=== PATIENT | female | born 1940 | race Caucasian/White ===

== ENCOUNTER 2016-10-24 01:04 | Emergency (ER) | payer MEDICARE ==
[2016-10-24 01:13] VITALS: O2SAT 98
[2016-10-24] MEDS ORDERED: TORAdol 30 mg Injection IV ONE (01:13)
[2016-10-24] MEDS ORDERED: Zofran 4 MG/2 ML VIAL IV ONE (01:13)
[2016-10-24] MEDS ORDERED: MORPHINE SULFATE 10 MG/ML IV ONE (01:13)
--- NOTE | 2016-10-24 01:17 | ERPHSYRPT ---
- History of Present Illness Time Seen by Provider: 10/24/16 01:11 Source: patient, EMS Exam Limitations: no limitations Patient Subjective Stated Complaint: "i tripped and fell again." per ems, deformity to right wrist Triage Nursing Assessment: aox3, breathing easy unlabored,skin pink warm dry, < 3 carp refill noted to right fingers, deformity noted to right lateral wrist Physician History: The patient is a 76-year-old female brought in from home by ambulance where she tripped and fell, hurting her right wrist. She is right-handed. The accident happened approximately one hour ago. She has severe wrist pain at this current time. She denies numbness or tingling in the extremities. The pain is severe. The past medical history significant for hypertension, high cholesterol, and DM. Occurred: just prior to arrival Method of Injury: fell Quality: constant Severity of Pain-Max: severe Severity of Pain-Current: severe Extremities Pain Location: wrist: right Modifying Factors: Improves With: nothing Associated Symptoms: none Allergies/Adverse Reactions: codeine Allergy (Verified 04/27/16 23:39) Sulfa (Sulfonamide Antibiotics) Allergy (Verified 04/27/16 23:39) Home Medications: Aspirin 81 mg PO DAILY 03/05/15 [History] Citalopram Hydrobromide 20 mg* [ceLEXa 20 MG] 20 mg PO HS 03/05/15 [History] Gabapentin 300 mg PO TID 03/05/15 [History] Glipizide 5 mg [Glucotrol 5 MG] 5 mg PO DAILY 03/05/15 [History] Losartan/Hydrochlorothiazide [Losartan-Hctz 100-25 mg Tab] 1 each PO DAILY 03/05 [History] Omeprazole 20 MG [Prilosec 20 mg] 20 mg PO DAILY 03/05/15 [History] Simvastatin 40 mg [Zocor 40 mg] 40 mg PO HS 03/05/15 [History] Albuterol Sulfate [Ventolin Hfa] 18 gm IH Q4-6HPRN PRN 10/24/16 [History] Hx Tetanus, Diphtheria Vaccination/Date Given: No Hx Influenza Vaccination/Date Given: No Hx Pneumococcal Vaccination/Date Given: No - Review of Systems Constitutional: No Fever, No Chills Eyes: No Symptoms Ears, Nose, & Throat: No Symptoms Respiratory: No Cough, No Dyspnea Cardiac: No Chest Pain, No Edema, No Syncope Abdominal/Gastrointestinal: Nausea Genitourinary Symptoms: No Dysuria Musculoskeletal: Deformity, Fall, Joint Pain Skin: No Rash Neurological: No Dizziness, No Focal Weakness, No Sensory Changes Psychological: No Symptoms Endocrine: No Symptoms Hematologic/Lymphatic: No Symptoms Immunological/Allergic: No Symptoms All Other Systems: Reviewed and Negative - Past Medical History Pertinent Past Medical History: Yes Neurological History: No Pertinent History ENT History: Cataracts Cardiac History: High Cholesterol, Hypertension Respiratory History: Asthma Endocrine Medical History: Diabetes Type II Musculoskeletal History: Arthritis GI Medical History: GERD History: No Pertinent History Psycho-Social History: Anxiety Female Reproductive Disorders: No Pertinent History - Past Surgical History Past Surgical History: Yes Neuro Surgical History: No Pertinent History Cardiac: No Pertinent History Respiratory: No Pertinent History Gastrointestinal: No Pertinent History Genitourinary: No Pertinent History Musculoskeletal: Orthopedic Surgery Female Surgical History: No Pertinent History Other Surgical History: R ARM, BACK, - Social History Smoking Status: Former smoker Exposure to second hand smoke: No Drug Use: none Patient Lives Alone: No - Nursing Vital Signs Nursing Vital Signs: Initial Vital Signs Temperature 98.3 F Temperature Source Oral Pulse Rate 95 Respiratory Rate 18 Blood Pressure [Left Arm] 124/85 Pain Intensity 10 - Physical Exam General Appearance: moderate distress Eyes, Ears, Nose, Throat Exam: moist mucous membranes Neck Exam: non-tender, supple Cardiovascular/Respiratory Exam: chest non-tender, normal breath sounds, regular rate/rhythm, no respiratory distress Abdominal Exam: non-tender, No guarding Back Exam: normal inspection, No vertebral tenderness Shoulder Exam: normal inspection Elbow/Forearm Exam: normal inspection Wrist Exam: deformity (right wrist), limited ROM, pain Hand Exam: normal inspection Neuro/Tendon Exam: normal sensation, normal motor functions Mental Status Exam: alert, oriented x 3, cooperative Skin Exam: normal color, warm, dry SpO2 Interpretation: normal - Radiology Exams Wrist X-ray Interpretation: Interpreted by me, Displaced Fracture (compression fx with lateral displacement of distal radius. Fx of ulnar styloid.) Ordered Tests: Active Orders 24 hr Category Date Time Status Cold Application STAT Care 10/24/16 01:13 Active IV Insertion STAT Care 10/24/16 01:13 Active WRIST (MIN 3 VIEWS) Stat Exams 10/24/16 01:14 Ordered Medication Summary Discontinued Medications Generic Name Dose Route Start Last Admin Trade Name Layla PRN Reason Stop Dose Admin Ketorolac Tromethamine 15 mg 10/24/16 01:13 10/24/16 01:24 Toradol 30 Mg Injection IV 10/24/16 01:14 15 mg STAT ONE Administration Ketorolac Tromethamine Confirm 10/24/16 01:20 Toradol 30 Mg Injection Administered 10/24/16 01:21 Dose 30 mg .ROUTE .STK-MED ONE Morphine Sulfate 8 mg 10/24/16 01:13 10/24/16 01:24 Morphine Sulfate 10 Mg/Ml IV 10/24/16 01:14 8 mg STAT ONE Administration Morphine Sulfate Confirm 10/24/16 01:20 Morphine Sulfate 10 Mg/Ml Administered 10/24/16 01:21 Dose 10 mg .ROUTE .STK-MED ONE Ondansetron HCl 4 mg 10/24/16 01:13 10/24/16 01:25 Zofran 4 Mg/2 Ml Vial IV 10/24/16 01:14 4 mg STAT ONE Administration Ondansetron HCl Confirm 10/24/16 01:20 Zofran 4 Mg/2 Ml Vial Administered 10/24/16 01:21 Dose 4 mg .ROUTE .STK-MED ONE - Progress Progress: improved Counseled pt/family regarding: rad results - Departure Time of Disposition: 02:02 Departure Disposition: Transfer (Transfer to [facility] per Dr Geronimo and Dr Shirley) Clinical Impression: Closed fracture distal radius and ulna Condition: Stable Critical Care Time: No
[2016-10-24] MEDS ORDERED: MORPHINE SULFATE 10 MG/ML ONE (01:20)
[2016-10-24] MEDS ORDERED: TORAdol 30 mg Injection ONE (01:20)
[2016-10-24] MEDS ORDERED: Zofran 4 MG/2 ML VIAL ONE (01:20)
[2016-10-24 02:18] VITALS: PULSE 79
[2016-10-24] MEDS ORDERED: MORPHINE SULFATE 4 MG INJ IV ONE (02:22)
[2016-10-24] MEDS ORDERED: MORPHINE SULFATE 4 MG INJ ONE (02:25)
[2016-10-24 03:09] VITALS: BP 119/88
--- NOTE | 2016-10-24 08:37 | XRAY ---
Indication: Pain following fall. Comparison: None 3 views of the right wrist demonstrates displaced/angulated oblique fracture involving the distal radius and displaced ulnar styloid fracture with soft tissue swelling. Also age-related osteopenia and mild degenerative changes of the first metacarpal multangular articulation.
== END 2016-10-24 03:30 | disposition short-term general hospital (02) ==
LOC: ED 01:04
DX: S52.501A Unspecified fracture of the lower end of right radius, initial encounter for closed fracture (principal); S52.611A Displaced fracture of right ulna styloid process, initial encounter for closed fracture; W01.0XXA Fall on same level from slipping, tripping and stumbling without subsequent striking against object, initial encounter; I10 Essential (primary) hypertension; E78.00 Pure hypercholesterolemia, unspecified; E11.9 Type 2 diabetes mellitus without complications; Z79.84 Long term (current) use of oral hypoglycemic drugs; Z79.899 Other long term (current) drug therapy
CPT/HCPCS: 36000; 73110; 96374; 96375; 96376; 99284; 99285; J1885; J2270; J2405

== ENCOUNTER 2017-09-26 07:33 | Inpatient (IN) | payer MEDICARE ==
[2017-09-26] MEDS ORDERED: SUBLIMAZE 100 MCG/2 ML IV ONE ×2 (07:34→08:19)
--- NOTE | 2017-09-26 07:40 | ERPHSYRPT ---
- History of Present Illness Time Seen by Provider: 09/26/17 07:34 Source: patient, EMS (gave IV and zofran) Physician History: CC: right flank pain Hx: 77 y/o patient of Dr Ellsworth. She lives at home with family support. Daughter in law apparently called 911 and told them pt needs to be placed in a home. She has 3 days of right flank pain. Denies fall or injury. Pain worse with movement. Severe. Normal urination but wears depends. No fever or chills. Was able to ambulate to cot with her walker. No N/V. She is diabetic. Denies blood thinners. She had nausea. BP 90 in ambulance. Timing/Duration: day(s) (3) Severity: moderate Allergies/Adverse Reactions: codeine Allergy (Verified 09/26/17 07:44) Sulfa (Sulfonamide Antibiotics) Allergy (Verified 09/26/17 07:44) Home Medications: Aspirin 81 mg PO DAILY 03/05/15 [History] Citalopram Hydrobromide 20 mg* [ceLEXa 20 MG] 20 mg PO HS 03/05/15 [History] Gabapentin 300 mg PO TID 03/05/15 [History] Glipizide 5 mg [Glucotrol 5 MG] 5 mg PO DAILY 03/05/15 [History] Losartan/Hydrochlorothiazide [Losartan-Hctz 100-25 mg Tab] 1 each PO DAILY 03/05 [History] Omeprazole 20 MG [Prilosec 20 mg] 20 mg PO DAILY 03/05/15 [History] Simvastatin 40 mg [Zocor 40 mg] 40 mg PO HS 03/05/15 [History] Albuterol Sulfate [Ventolin Hfa] 18 gm IH Q4-6HPRN PRN 10/24/16 [History] Hx Tetanus, Diphtheria Vaccination/Date Given: No Hx Influenza Vaccination/Date Given: No Hx Pneumococcal Vaccination/Date Given: No - Review of Systems Constitutional: Fatigue, Malaise, Weakness, No Fever, No Chills Eyes: No Symptoms Ears, Nose, & Throat: No Symptoms Respiratory: No Cough Cardiac: No Chest Pain Abdominal/Gastrointestinal: Abdominal Pain (and right flank pain), Nausea, No Vomiting, No Diarrhea Genitourinary Symptoms: No Dysuria Musculoskeletal: Back Pain (right flank pain), No Fall Skin: No Rash Neurological: No Focal Weakness, No Headache, No Parasthesia All Other Systems: Reviewed and Negative - Past Medical History Pertinent Past Medical History: Yes Neurological History: No Pertinent History ENT History: Cataracts Cardiac History: Other Respiratory History: Asthma Endocrine Medical History: Diabetes Type II Musculoskeletal History: Arthritis GI Medical History: GERD History: No Pertinent History Psycho-Social History: Anxiety Female Reproductive Disorders: No Pertinent History - Past Surgical History Past Surgical History: Yes Neuro Surgical History: No Pertinent History Cardiac: No Pertinent History Respiratory: No Pertinent History Gastrointestinal: No Pertinent History Genitourinary: No Pertinent History Musculoskeletal: Orthopedic Surgery Female Surgical History: No Pertinent History Other Surgical History: R ARM, BACK, - Social History Smoking Status: Former smoker Exposure to second hand smoke: No Drug Use: none Patient Lives Alone: No (lives at home with son) - Nursing Vital Signs Nursing Vital Signs: Initial Vital Signs Temperature 98.3 F 09/26/17 07:34 Pulse Rate 89 09/26/17 07:34 Respiratory Rate 20 09/26/17 07:34 Blood Pressure 155/61 09/26/17 07:34 O2 Sat by Pulse Oximetry 100 09/26/17 07:34 Pain Scale Pain Intensity 6 - Physical Exam General Appearance: alert, obese, other (agitated on arrival) Eye Exam: PERRL/EOMI Ears, Nose, Throat Exam: normal ENT inspection, moist mucous membranes Neck Exam: normal inspection, non-tender, supple Respiratory Exam: normal breath sounds, other (tender right posterior lower rib , no crepitus, breath sounds intact) Cardiovascular Exam: regular rate/rhythm Gastrointestinal/Abdomen Exam: soft, No tenderness, No distention, No mass, No guarding Extremity Exam: normal range of motion, pedal edema (trace) Neurologic Exam: alert, oriented x 3, No motor deficits Skin Exam: warm, dry, other (small round bruises on legs) - Course Nursing assessment & vital signs reviewed: Yes EKG Interpreted by Me: RATE (78), Sinus Rhythm, NORMAL AXIS, NORMAL INTERVALS ( QTc 424), Non-specific ST Changes - Radiology Exams cxr X-ray Interpretation: Teleradiologist Report, Negative (lungs clear) - CT Exams abd/pelvis CT Interpretation: Discussed w/radiologist (nondisplaced right rib fx, right renal cyst vs calcified mass) Ordered Tests: Active Orders 24 hr Category Date Time Status Cath for Specimen-Straight STAT Care 09/26/17 07:35 Active EKG-ER Only STAT Care 09/26/17 07:34 Active IV Insertion STAT Care 09/26/17 07:34 Active NPO (ED) STAT Care 09/26/17 07:34 Active ABDOMEN AND PELVIS W/0 CONTRAS [CT] Stat Exams 09/26/17 07:35 Completed CHEST 1 VIEW (PORTABLE) Stat Exams 09/26/17 07:34 Completed RECONSTRUCTION [CT] Stat Exams 09/26/17 08:01 Ordered BLOOD CULTURE Stat Lab 09/26/17 07:40 Received CBC W DIFF Stat Lab 09/26/17 07:34 Completed CMP Stat Lab 09/26/17 07:34 Completed CULTURE,URINE Stat Lab 09/26/17 07:34 Received LIPASE Stat Lab 09/26/17 07:34 Completed Lactic Acid Stat Lab 09/26/17 08:52 Received UA W/ MICROSCOPIC Stat Lab 09/26/17 07:34 Completed Medication Summary Generic Name Dose Route Start Last Admin Trade Name Freq PRN Reason Stop Dose Admin Sodium Chloride 1,000 mls @ 50 mls/hr 09/26/17 07:45 09/26/17 07:47 Sodium Chloride 0.9% 1000 Ml IV 10/26/17 07:44 50 mls/hr .Q20H SHAUN Administration Ceftriaxone Sodium/Dextrose 1 g in 50 mls @ 100 mls/hr 09/26/17 08:41 Rocephin 1 Gm-D5w 50 Ml Bag IV 09/26/17 09:10 STAT STA Discontinued Medications Generic Name Dose Route Start Last Admin Trade Name Freq PRN Reason Stop Dose Admin Fentanyl Citrate 50 mcg 09/26/17 07:34 09/26/17 07:47 Sublimaze 100 Mcg/2 Ml IV 09/26/17 07:35 50 mcg STAT ONE Administration Fentanyl Citrate Confirm 09/26/17 07:44 Sublimaze 100 Mcg/2 Ml Administered 09/26/17 07:45 Dose 100 mcg .ROUTE .STK-MED ONE Fentanyl Citrate 50 mcg 09/26/17 08:19 09/26/17 08:23 Sublimaze 100 Mcg/2 Ml IV 09/26/17 08:20 50 mcg STAT ONE Administration Fentanyl Citrate Confirm 09/26/17 08:22 Sublimaze 100 Mcg/2 Ml Administered 09/26/17 08:23 Dose 100 mcg .ROUTE .STK-MED ONE Lab/Rad Data: Laboratory Result Diagrams 09/26/17 07:34 09/26/17 07:34 Laboratory Results 09/26/17 09/26/17 09/26/17 Range/Units 07:34 07:34 07:34 WBC 5.4 (4.0-10.5) K/mm3 RBC 4.16 (4.1-5.4) M/mm3 Hgb 13.8 (12.0-16.0) gm/dl Hct 40.1 (35-47) % MCV 96.4 (78-100) fl MCH 33.2 H (26-32) pg MCHC 34.4 (32-36) g/dl RDW 12.5 (11.5-14.0) % Plt Count 217 (150-450) K/mm3 MPV 11.1 H (6-9.5) fl Gran % 60.7 (36.0-66.0) % Lymphocytes % 25.0 (24.0-44.0) % Monocytes % 9.8 (0.0-12.0) % Eosinophils % 4.1 (0.00-5.0) % Basophils % 0.4 (0.0-0.4) % Basophils # 0.02 (0-0.4) Sodium 140 (136-145) mEq/L Potassium 4.2 (3.5-5.1) mEq/L Chloride 102 (98-107) mEq/L Carbon Dioxide 24.8 (21-32) mEq/L Anion Gap 17.2 H (5-15) MEQ/L BUN 24 H (9-20) mg/dL Creatinine 1.11 (0.55-1.30) mg/dl Estimated GFR 51 ML/MIN Glucose 172 H (70-110) MG/DL Calcium 9.6 (8.5-10.1) mg/dL Total Bilirubin 0.70 (0.2-1.0) mg/dL AST 15 (15-37) U/L ALT 20 (12-78) U/L Alkaline Phosphatase 58 (46-116) U/L Serum Total Protein 7.5 (6.4-8.2) gm/dL Albumin 4.1 (3.4-5.0) g/dL Lipase 135 (73-393) U/L Ur Collection Type CATH Urine Color YELLOW (YELLOW) Urine Appearance HAZY (CLEAR) Urine pH 5.0 (5-6) Ur Specific [place] 1.015 (1.005-1.025) Urine Protein TRACE (Negative) Urine Ketones NEGATIVE (NEGATIVE) Urine Blood 250 (0-5) Charles/ul Urine Nitrite POSITIVE (NEGATIVE) Urine Bilirubin NEGATIVE (NEGATIVE) Urine Urobilinogen NORMAL (0-1) mg/dL Ur Leukocyte Esterase 1+ (NEGATIVE) Urine Microscopic RBC 5-10 (0-2) /HPF Urine Microscopic WBC 2-5 (0-5) /HPF Ur Epithelial Cells FEW (FEW) /HPF Urine Bacteria MANY (NEGATIVE) /HPF Urine Culture Reflexed YES (NO) Urine Glucose NEGATIVE (NEGATIVE) mg/dL Specimen Received 09/26/17 0734 - Progress Progress Note: 09/26/17 08:55 She is enrolled in OP PT. She apparently has limited mobililty at home. This pain has been uncontrolled and limited her. She has UTI. Called Dr Kemp for Stephan and will admit to IP, consult PT, pain control, and abtx. Discussed with : Justo Will see patient in: hospital (full admit) Counseled pt/family regarding: lab results, diagnosis, need for follow-up, rad results - Departure Time of Disposition: 08:56 Departure Disposition: In-patient Admission Clinical Impression: Diabetes, UTI (urinary tract infection), Right rib fracture Condition: Fair Critical Care Time: No Referrals: JAVED ELLSWORTH MD [Primary Care Provider] -
[2017-09-26] MEDS ORDERED: SUBLIMAZE 100 MCG/2 ML ONE ×2 (07:44→08:22)
[2017-09-26] MEDS ORDERED: Sodium Chloride 0.9% 1000 ML 1,000 ML ONE (07:44)
[2017-09-26] MEDS ORDERED: Sodium Chloride 0.9% 1000 ML 1,000 ML IV SCH (07:45)
[2017-09-26 08:00] LABS: BASOPHIL % 0.4 % (0.0-0.4); Basophil (Absolute #) 0.02 (0-0.4); Eosinophil % 4.1 % (0.00-5.0); Eosinophil (Absolute #) 0.22 (0-0.5); Granulocyte Absolute (ANC) 3.28 (1.4-6.9); Granulocytes % 60.7 % (36.0-66.0); Hematocrit 40.1 % (35-47); Hemoglobin 13.8 gm/dl (12.0-16.0); Lymphocyte (Absolute #) 1.35 (1.0-4.6); Mean Cell Volume 96.4 fl (78-100); Mean Corpuscular Hemoglobin 33.2 pg (26-32); Mean Corpuscular Hgb Concent. 34.4 g/dl (32-36); Mean Platelet Volume 11.1 fl (6-9.5); Monocyte (Absolute #) 0.53 (0.0-1.3); Monocytes % 9.8 % (0.0-12.0); Platelet Count 217 K/mm3 (150-450); Red Blood Count 4.16 M/mm3 (4.1-5.4); Red Cell Distribution Width 12.5 % (11.5-14.0); White Blood Count 5.4 K/mm3 (4.0-10.5)
[2017-09-26 08:05] LABS: Appearance HAZY (CLEAR); Bilirubin NEGATIVE (NEGATIVE); Blood 250 Ery/ul (0-5); Glucose NEGATIVE (NEGATIVE); Ketones NEGATIVE (NEGATIVE); Leukocyte Esterase 1+ (NEGATIVE); Nitrite POSITIVE (NEGATIVE); Protein,Urine Dip TRACE (Negative); Specific Gravity 1.015 (1.005-1.025); Urobilinogen NORMAL mg/dL (0-1)
[2017-09-26 08:08] LABS: Bacteria MANY /HPF (NEGATIVE); Epithelial Cells FEW /HPF (FEW)
[2017-09-26 08:19] LABS: ALBUMIN 4.1 g/dL (3.4-5.0); ANION GAP 17.2 MEQ/L (5-15); BILIRUBIN,TOTAL 0.7 mg/dL (0.2-1.0); Calcium 9.6 mg/dL (8.5-10.1); Carbon Dioxide 24.8 mEq/L (21-32); Creatinine 1 1.11 mg/dl (0.55-1.30); Potassium 4.2 mEq/L (3.5-5.1); Total Protein 7.5 gm/dL (6.4-8.2)
[2017-09-26] MEDS ORDERED: ROCEPHIN 1 Gm-D5w 50 ml Bag** 1 G/50 ML IVPB IV STA (08:41)
--- NOTE | 2017-09-26 08:41 | XRAY ---
Indication: Chest pain. Comparison: April 27, 2016. Portable chest better inflated today and clear. Heart and mediastinal structures within normal limits for AP portable technique. Bony thorax intact again with mild osteopenia, degenerative changes, and right shoulder surgery. Impression: Nonacute chest with chronic features.
--- NOTE | 2017-09-26 08:44 | XRAY ---
Indication: Right flank pain. Multiple contiguous axial images obtained through the abdomen and pelvis without contrast using renal stone protocol. Comparison: None Lung bases essentially clear. Heart is not enlarged. Small hiatal hernia. No renal calculus or evidence for obstructive uropathy in either system. 3 cm right mid renal cortical cyst. 1 cm hyperdense lesion in the left mid renal cortex either complex/hemorrhagic cyst versus calcified mass. No perinephric stranding or perinephric fluid. Mild fatty liver. Remaining liver, gallbladder, pancreas, spleen, adrenal glands, kidneys, ureters, bladder, and uterus unremarkable for noncontrast exam. Noncontrasted stomach and bowel loops appear nonobstructed. Normal appendix. No free fluid/air. Heavy aortoiliac calcifications without AAA. Osseous structures intact with degenerative changes throughout the spine. Old right inferior. Bone fracture. Small fatty right inguinal hernia. No ventral hernia. Impression: 1. Negative renal calculus or evidence for obstructive uropathy. 2. Right renal cysts. Left renal hyperdense lesion either complex/hemorrhagic cyst cyst versus calcified mass. Further evaluation with contrasted exam may yield further information. 3. Incidental small hiatal hernia, fatty liver, and a small fatty right inguinal hernia. CT DI 23.68
[2017-09-26] MEDS ORDERED: ROCEPHIN 1 Gm-D5w 50 ml Bag** 1 G/50 ML IVPB IV ONE (08:54)
[2017-09-26 09:03] LABS: Lactic Acid 3.4 (0.4-2.0)
[2017-09-26] MEDS ORDERED: TYLENOL 325 MG PO PRN (09:27)
[2017-09-26] MEDS ORDERED: NovoLOG Insulin SQ PRN (09:27)
[2017-09-26] MEDS ORDERED: Zofran 4 MG/2 ML VIAL IV PRN (09:27)
[2017-09-26] MEDS: DILAUDID 2 MG INJECTION IV PRN ×2 (09:53→14:34)
[2017-09-26] MEDS: NEURONTIN 300 MG PO SCH ×2 (14:34→21:02)
[2017-09-26] MEDS: Protonix 40MG Tablet PO SCH (14:39)
[2017-09-26] MEDS: ECOTRIN 81 MG PO SCH (14:39)
[2017-09-26] MEDS: hydroDIURIL 25 MG PO SCH (14:42)
[2017-09-26] MEDS: Cozaar 50 MG PO SCH (14:42)
[2017-09-26] MEDS ORDERED: PROVENTIL COMMON CANISTER IH PRN (15:00)
--- NOTE | 2017-09-26 18:24 | PCM.HP ---
History of Present Illness - Chief Complaint Chief Complaint: UTI, RIGHT RIB FRACTURE, DM History of Present Illness: is a 77 year old female pt of Dr. Rothman who was brought to ER by family earlier today. Per Dr. Lynn the daughter in law dropped pt off then left for work, stating she couldn't be back to get her until the end of the day. Pt has been c/o R flank pain x 3d or so. Denies fever. She was found to have a UTI and possibly have a cracked rib (per Dr. Lynn; Dr. Menard did not read in his films). The pain appears worse with movement. Denies vomiting or diarrhea. States she has been eating well. Pt's son and daughter in law live with her. She states they take care of her. Per RN, Adult Protective Services has been called to evaluate the situation at one point. Per RN, the family talks poorly about the patient, calling her derogatory names. Pt is a poor historian and appears to have some dementia as she is not oriented to time and asks for Dr. Wooten at one point during our visit. - Review of Systems All Other Systems: Unable due to dementia Medications & Allergies Home Medications: Home Medication List Aspirin 81 mg PO DAILY 03/05/15 [History Confirmed 09/26/17] Citalopram Hydrobromide 20 mg* [ceLEXa 20 MG] 20 mg PO HS 03/05/15 [History Confirmed 09/26/17] Gabapentin 300 mg PO TID 03/05/15 [History Confirmed 09/26/17] Glipizide 5 mg [Glucotrol 5 MG] 5 mg PO DAILY 03/05/15 [History Confirmed 09/26/17] Losartan/Hydrochlorothiazide [Losartan-Hctz 100-25 mg Tab] 1 each PO DAILY 03/05 [History Confirmed 09/26/17] Omeprazole 20 MG [Prilosec 20 mg] 20 mg PO DAILY 03/05/15 [History Confirmed ] Simvastatin 40 mg [Zocor 40 mg] 40 mg PO HS 03/05/15 [History Confirmed 09/26/17 ] Albuterol Sulfate [Ventolin Hfa] 18 gm IH Q4-6HPRN PRN 10/24/16 [History Confirmed 09/26/17] Allergies/Adverse Reactions: Allergies Allergy/AdvReac Type Severity Reaction Status Date / Time codeine Allergy Verified 09/26/17 07:44 Sulfa (Sulfonamide Allergy Verified 09/26/17 07:44 Antibiotics) - Past Medical History Past Medical History: Yes Neurological History: No Pertinent History ENT History: Cataracts Cardiac History: Other Respiratory History: Asthma Endocrine Medical History: Diabetes Type II Musculoskelatal History: Arthritis GI Medical History: GERD History: No Pertinent History Pyscho-Social History: Anxiety Reproductive Disorders: No Pertinent History - Past Surgical History Past Surgical History: Yes Neuro Surgical History: No Pertinent History Cardiac History: No Pertinent History Respiratory Surgery: No Pertinent History GI Surgical History: No Pertinent History Genitourinary Surgical Hx: No Pertinent History Musculskeletal Surgical Hx: Orthopedic Surgery Female Surgical History: No Pertinent History Other Surgical History: R ARM, BACK, R hand surgery - Social History Smoking Status: Former smoker Exposure to second hand smoke: Yes Alcohol: None Drug Use: none - Physical Exam Vital Signs: Vital Signs - 24 hr Temp Pulse Resp BP Pulse Ox 09/26/17 17:00 99.0 F 82 18 107/55 94 L 09/26/17 13:27 98.4 F 67 18 130/60 99 09/26/17 10:18 98.2 F 67 20 134/62 99 09/26/17 09:38 98.2 F 67 134/62 09/26/17 09:27 98.2 F 67 18 134/62 99 09/26/17 08:51 81 20 131/73 100 09/26/17 08:35 76 18 134/65 100 09/26/17 08:20 89 20 149/60 100 09/26/17 07:34 98.3 F 89 20 155/61 100 General Appearance: moderate distress (at times (with movement)), alert Neurologic Exam: cooperative (but does not always answer questions), disoriented (to time) Eye Exam: eyes nml inspection Neck Exam: normal inspection, non-tender, No lymphadenopathy Respiratory Exam: normal breath sounds, lungs clear, No crackles/rales, No rhonchi, No wheezing Cardiovascular Exam: regular rate/rhythm, normal heart sounds, No murmur Gastrointestinal/Abdomen Exam: soft, tenderness (RUQ, mild), No distention, No guarding, No rebound Back Exam: normal inspection, other (no rash. ttp at R costophrenic angle) Extremity Exam: swelling (1+ pretibial edema bilat) Assessment/Plan (1) Flank pain Current Visit: Yes Status: Acute Assessment & Plan: could be related to UTI although no signs of pyelonephritis on CT abd/pelvis. Could be musculoskeletal - added cyclobenzaprine and try percocet po for pain. Code(s): R10.9 - UNSPECIFIED ABDOMINAL PAIN (2) UTI (urinary tract infection) Current Visit: Yes Status: Acute Assessment & Plan: On IV rocephin. urine culture pending. Code(s): N39.0 - URINARY TRACT INFECTION, SITE NOT SPECIFIED (3) Diabetes Current Visit: Yes Status: Acute Qualifiers: Diabetes mellitus type: type 2 Assessment & Plan: accuchecks Code(s): E11.9 - TYPE 2 DIABETES MELLITUS WITHOUT COMPLICATIONS (4) Fall at home Current Visit: Yes Status: Acute Qualifiers: Encounter type: initial encounter Qualified Code(s): W19.XXXA - Unspecified fall, initial encounter; Y92.009 - Unspecified place in unspecified non-institutional (private) residence as the place of occurrence of the external cause; Y92.009 - Unspecified place in unspecified non-institutional ( private) residence as the place of occurrence of the external cause Code(s): W19.XXXA - UNSPECIFIED FALL, INITIAL ENCOUNTER; Y92.099 - UNSP PLACE IN OTH NON-INSTITUTIONAL RESIDENCE PLACE (5) Right rib fracture Current Visit: Yes Status: Acute Qualifiers: Encounter type: initial encounter Rib fracture type: single rib Fracture type: closed Qualified Code(s): S22.31XA - Fracture of one rib, right side, initial encounter for closed fracture Assessment & Plan: Unsure if fx is present Code(s): S22.31XA - FRACTURE OF ONE RIB, RIGHT SIDE, INIT FOR CLOS FX (6) Coronary artery disease Current Visit: No Status: Chronic Code(s): I25.10 - ATHSCL HEART DISEASE OF [place] CORONARY ARTERY W/O ANG PCTRS (7) Social issues Current Visit: Yes Status: Acute Assessment & Plan: Jamaal Hernandesd working with family; they desire placement. Certainly there are emotional issues between family and pt.
[2017-09-26] MEDS: OXYCODONE-ACETAMINOPHEN 10-325 PO PRN (19:28)
[2017-09-26] MEDS: ZOCOR 20MG PO SCH (21:01)
[2017-09-26] MEDS: ceLEXa 20 MG PO SCH (21:02)
[2017-09-27] MEDS: Sodium Chloride 0.9% 1000 ML 1,000 ML IV SCH (04:25)
[2017-09-27] MEDS: DILAUDID 2 MG INJECTION IV PRN (04:54)
[2017-09-27] MEDS: OXYCODONE-ACETAMINOPHEN 10-325 PO PRN ×2 (08:14→15:04)
--- NOTE | 2017-09-27 08:41 | PCM.NOTE ---
Date and Time: 09/27/17838 Subjective Assessment: patient still c/o significant right flank pain. she has no new complaints, has been up out of bed to use the restroom. Objective Exam General Appearance: no apparent distress, alert, obese Skin Exam: normal color, warm, dry Respiratory Exam: normal breath sounds, lungs clear, No respiratory distress Cardiovascular Exam: regular rate/rhythm, normal heart sounds Gastrointestinal/Abdomen Exam: soft, No tenderness, No mass Extremity Exam: normal inspection, normal range of motion OBJECTIVE DATA Vital Signs: Vital Signs - 24 hr Temp Pulse Resp BP Pulse Ox 09/27/17 07:28 73 16 94 L 09/27/17 07:23 97.6 F 78 18 96/52 96 09/27/17 04:59 98.0 F 72 20 103/52 94 L 09/27/17 00:30 97.8 F 83 16 97/51 94 L 09/26/17 21:10 88 18 93 L 09/26/17 21:00 98.8 F 88 18 97/55 93 L 09/26/17 17:00 99.0 F 82 18 107/55 94 L 09/26/17 13:27 98.4 F 67 18 130/60 99 09/26/17 10:18 98.2 F 67 20 134/62 99 09/26/17 09:38 98.2 F 67 134/62 09/26/17 09:27 98.2 F 67 18 134/62 99 09/26/17 08:51 81 20 131/73 100 Pain Assessment - Last Documented Pain Intensity 9 Pain Scale Used 0-10 Pain Scale Intake and Output: Intake & Output 09/24/17 09/25/17 09/26/17 09/27/17 11:59 11:59 11:59 11:59 Intake Total 1560 Balance 1560 Weight 97.7 kg Lab Results: Accuchecks Date 09/27/17 Date 09/26/17 Date 09/26/17 Date 09/26/17 Time 07:00 Time 21:00 Time 16:30 Time 11:30 Accucheck Value: 121 Accucheck Value: 145 Accucheck Value: 111 Accucheck Value: 141 Lab Results-Last 24 Hours 09/26/17 Range/Units 17:11 Lactic Acid 1.4 (0.4-2.0) Multi-Disciplinary Progress Notes: Multi-Disciplinary Progress Notes 09/26/17 14:29 Physical Therapy Note by Agatha Banda PATIENT UNABLE TO TOLERATE ACTIVITY BEYOND ROUTINE CARE TODAY DUE TO GRABBING LOWER RIGHT QUADRANT PAIN. PAIN ONSETS WITH MINIMAL MOVEMENT. APPLIED ICE TO ASSESS BENEFIT. CONTINUES PAIN MEDS. UNCLEAR IF PAIN IS ASSOCIATED WITH RIGHT 10TH RIB FX. PATIENT REPORTS NO RECENT FALLS. ABD CT OTHERWISE NEGATIVE FOR ANY OTHER ACUTE PROBLEMS. PATIENT DOES HAVE A UTI; RIGHT FLANK PAIN WAS REPORTED IN E.R. Initialized on 09/26/17 14:29 - END OF NOTE Assessment/Plan (1) UTI (urinary tract infection) Current Visit: Yes Status: Acute Assessment & Plan: on rocephin, c and s pending. failed outpatient therapy and needs continued IV antibiotics Code(s): N39.0 - URINARY TRACT INFECTION, SITE NOT SPECIFIED (2) Fall at home Current Visit: Yes Status: Acute Qualifiers: Encounter type: initial encounter Qualified Code(s): W19.XXXA - Unspecified fall, initial encounter; Y92.009 - Unspecified place in unspecified non-institutional (private) residence as the place of occurrence of the external cause; Y92.009 - Unspecified place in unspecified non-institutional ( private) residence as the place of occurrence of the external cause Assessment & Plan: discussed patient will need rehab stay Code(s): W19.XXXA - UNSPECIFIED FALL, INITIAL ENCOUNTER; Y92.099 - UNSP PLACE IN OTH NON-INSTITUTIONAL RESIDENCE PLACE (3) Flank pain Current Visit: Yes Status: Acute Code(s): R10.9 - UNSPECIFIED ABDOMINAL PAIN (4) Diabetes Current Visit: Yes Status: Acute Qualifiers: Diabetes mellitus type: type 2 Code(s): E11.9 - TYPE 2 DIABETES MELLITUS WITHOUT COMPLICATIONS
[2017-09-27] MEDS: ECOTRIN 81 MG PO SCH (09:24)
[2017-09-27] MEDS: NEURONTIN 300 MG PO SCH ×3 (09:24→22:19)
[2017-09-27] MEDS: ROCEPHIN 1 Gm-D5w 50 ml Bag** 1 G/50 ML IVPB IV SCH (09:25)
[2017-09-27] MEDS: Protonix 40MG Tablet PO SCH (09:25)
[2017-09-27] MEDS: ENOXAPARIN SODIUM SQ SCH (09:30)
[2017-09-27] MEDS ORDERED: FLUZONE HIGH-DOSE 2017-18 SYR IM ONE (10:00)
[2017-09-27] MEDS ORDERED: BABY ASPIRIN 81 MG CHEW PO SCH (10:00)
[2017-09-27] MEDS ORDERED: NON-FORMULARY ITEM (Losartan/Hydrochlorothiazide [Losartan-Hctz 100-25 Mg Tab] 1 EACH) PO SCH (10:00)
[2017-09-27] MEDS: Cozaar 50 MG PO SCH (11:01)
[2017-09-27] MEDS: hydroDIURIL 25 MG PO SCH (11:01)
[2017-09-27] MEDS: ceLEXa 20 MG PO SCH (22:19)
[2017-09-27] MEDS: ZOCOR 20MG PO SCH (22:19)
[2017-09-28] MEDS: Sodium Chloride 0.9% 1000 ML 1,000 ML IV SCH ×2 (00:58→14:34)
[2017-09-28] MEDS: DILAUDID 2 MG INJECTION IV PRN (05:01)
[2017-09-28 05:35] LABS: BASOPHIL % 0.4 % (0.0-0.4); Basophil (Absolute #) 0.02 (0-0.4); Eosinophil % 7.4 % (0.00-5.0); Eosinophil (Absolute #) 0.39 (0-0.5); Granulocyte Absolute (ANC) 2.92 (1.4-6.9); Granulocytes % 55.1 % (36.0-66.0); Hemoglobin 11.9 gm/dl (12.0-16.0); Lymphocyte (Absolute #) 1.38 (1.0-4.6); Mean Cell Volume 98.7 fl (78-100); Mean Corpuscular Hemoglobin 31.7 pg (26-32); Mean Corpuscular Hgb Concent. 32.2 g/dl (32-36); Mean Platelet Volume 11.2 fl (6-9.5); Monocyte (Absolute #) 0.59 (0.0-1.3); Monocytes % 11.1 % (0.0-12.0); Platelet Count 193 K/mm3 (150-450); Red Blood Count 3.75 M/mm3 (4.1-5.4); Red Cell Distribution Width 12.6 % (11.5-14.0); White Blood Count 5.3 K/mm3 (4.0-10.5)
[2017-09-28] MEDS: OXYCODONE-ACETAMINOPHEN 10-325 PO PRN ×3 (06:19→23:25)
[2017-09-28 06:45] LABS: ALBUMIN 3.3 g/dL (3.4-5.0); ANION GAP 12.9 MEQ/L (5-15); BILIRUBIN,TOTAL 0.4 mg/dL (0.2-1.0); Calcium 8.6 mg/dL (8.5-10.1); Carbon Dioxide 27.9 mEq/L (21-32); Creatinine 1 0.98 mg/dl (0.55-1.30); Total Protein 6.4 gm/dL (6.4-8.2)
--- NOTE | 2017-09-28 08:25 | PCM.NOTE ---
Date and Time: 09/28/17822 Subjective Assessment: patient still not able to move much without severe right flank/chest wall pain. tolerating po, no vomiting, no diarrhea Objective Exam General Appearance: no apparent distress, obese Neurologic Exam: alert Skin Exam: normal color, warm, dry Respiratory Exam: normal breath sounds, lungs clear, other (right lateral chest wall tender), No respiratory distress Cardiovascular Exam: regular rate/rhythm, normal heart sounds Gastrointestinal/Abdomen Exam: soft, No tenderness, No mass OBJECTIVE DATA Vital Signs: Vital Signs - 24 hr Temp Pulse Resp BP Pulse Ox 09/28/17 07:00 98.6 F 65 16 100/55 94 L 09/28/17 03:00 97.8 F 71 19 105/56 95 09/27/17 23:00 98.3 F 70 16 89/50 94 L 09/27/17 19:54 71 16 93 L 09/27/17 19:00 98.4 F 78 20 90/48 93 L 09/27/17 15:00 97.5 F 64 18 103/53 94 L 09/27/17 11:21 97.6 F 67 18 101/55 93 L Pain Assessment - Last Documented Pain Intensity 8 Pain Scale Used 0-10 Pain Scale Intake and Output: Intake & Output 09/25/17 09/26/17 09/27/17 09/28/17 11:59 11:59 11:59 11:59 Intake Total 2257 Output Total 200 Balance 7 Lab Results: Accuchecks Date 09/28/17 Date 09/27/17 Date 09/27/17 Date 09/27/17 Time 07:00 Time 16:00 Time 11:00 Accucheck Value: 122 Accucheck Value: 165 Accucheck Value: 128 Accucheck Value: 155 Lab Results-Last 24 Hours 09/28/17 09/28/17 Range/Units 05:25 05:25 WBC 5.3 (4.0-10.5) K/mm3 RBC 3.75 L (4.1-5.4) M/mm3 Hgb 11.9 L (12.0-16.0) gm/dl Hct 37.0 (35-47) % MCV 98.7 (78-100) fl MCH 31.7 (26-32) pg MCHC 32.2 (32-36) g/dl RDW 12.6 (11.5-14.0) % Plt Count 193 (150-450) K/mm3 MPV 11.2 H (6-9.5) fl Gran % 55.1 (36.0-66.0) % Lymphocytes % 26.0 (24.0-44.0) % Monocytes % 11.1 (0.0-12.0) % Eosinophils % 7.4 H (0.00-5.0) % Basophils % 0.4 (0.0-0.4) % Basophils # 0.02 (0-0.4) Sodium 144 (136-145) mEq/L Potassium 4.0 (3.5-5.1) mEq/L Chloride 107 (98-107) mEq/L Carbon Dioxide 27.9 (21-32) mEq/L Anion Gap 12.9 (5-15) MEQ/L BUN 15 (9-20) mg/dL Creatinine 0.98 (0.55-1.30) mg/dl Estimated GFR 59 ML/MIN Glucose 112 H (70-110) MG/DL Calcium 8.6 (8.5-10.1) mg/dL Total Bilirubin 0.40 (0.2-1.0) mg/dL AST 16 (15-37) U/L ALT 16 (12-78) U/L Alkaline Phosphatase 44 L (46-116) U/L Serum Total Protein 6.4 (6.4-8.2) gm/dL Albumin 3.3 L (3.4-5.0) g/dL Assessment/Plan (1) UTI (urinary tract infection) Current Visit: Yes Status: Acute Assessment & Plan: continue rocephin, culture grew E coli Code(s): N39.0 - URINARY TRACT INFECTION, SITE NOT SPECIFIED (2) Fall at home Current Visit: Yes Status: Acute Qualifiers: Encounter type: initial encounter Qualified Code(s): W19.XXXA - Unspecified fall, initial encounter; Y92.009 - Unspecified place in unspecified non-institutional (private) residence as the place of occurrence of the external cause; Y92.009 - Unspecified place in unspecified non-institutional ( private) residence as the place of occurrence of the external cause Assessment & Plan: will need ECF placement Code(s): W19.XXXA - UNSPECIFIED FALL, INITIAL ENCOUNTER; Y92.099 - UNSP PLACE IN [facility] NON-INSTITUTIONAL RESIDENCE PLACE (3) Flank pain Current Visit: Yes Status: Acute Code(s): R10.9 - UNSPECIFIED ABDOMINAL PAIN (4) Diabetes Current Visit: Yes Status: Acute Qualifiers: Diabetes mellitus type: type 2 Code(s): E11.9 - TYPE 2 DIABETES MELLITUS WITHOUT COMPLICATIONS
[2017-09-28] MEDS: Cozaar 50 MG PO SCH (10:00)
[2017-09-28] MEDS: ECOTRIN 81 MG PO SCH (10:00)
[2017-09-28] MEDS: hydroDIURIL 25 MG PO SCH (10:00)
[2017-09-28] MEDS: ROCEPHIN 1 Gm-D5w 50 ml Bag** 1 G/50 ML IVPB IV SCH (10:00)
[2017-09-28] MEDS: NEURONTIN 300 MG PO SCH ×3 (10:00→22:21)
[2017-09-28] MEDS: ENOXAPARIN SODIUM SQ SCH (10:00)
[2017-09-28] MEDS: Protonix 40MG Tablet PO SCH (10:04)
[2017-09-28] MEDS: ZOCOR 20MG PO SCH (22:21)
[2017-09-28] MEDS: ceLEXa 20 MG PO SCH (22:21)
[2017-09-29] MEDS: Sodium Chloride 0.9% 1000 ML 1,000 ML IV SCH ×2 (01:55→15:43)
[2017-09-29] MEDS: OXYCODONE-ACETAMINOPHEN 10-325 PO PRN ×4 (03:36→18:29)
[2017-09-29] MEDS: Protonix 40MG Tablet PO SCH (07:41)
[2017-09-29] MEDS: hydroDIURIL 25 MG PO SCH (07:41)
[2017-09-29] MEDS: Cyclobenzaprine 10 MG PO PRN ×2 (07:41→15:39)
[2017-09-29] MEDS: Cozaar 50 MG PO SCH (07:41)
[2017-09-29] MEDS: ECOTRIN 81 MG PO SCH (07:41)
[2017-09-29] MEDS: NEURONTIN 300 MG PO SCH ×3 (07:45→21:57)
--- NOTE | 2017-09-29 08:18 | PCM.NOTE ---
Date and Time: 09/29/17 0816 Subjective Assessment: no new complaints today. tolerating po, still having significant mobility issues. planning to discharge to [facility] tomorrow Objective Exam General Appearance: no apparent distress, obese Neurologic Exam: alert Skin Exam: normal color, warm, dry Respiratory Exam: normal breath sounds Cardiovascular Exam: regular rate/rhythm, normal heart sounds Gastrointestinal/Abdomen Exam: soft, No tenderness, No mass Extremity Exam: normal inspection, normal range of motion OBJECTIVE DATA Vital Signs: Vital Signs - 24 hr Temp Pulse Resp BP Pulse Ox 09/29/17 07:14 97.8 F 70 20 117/59 96 09/29/17 03:00 97.5 F 70 16 126/59 96 09/28/17 23:00 97.9 F 75 22 123/58 96 09/28/17 19:00 98.0 F 77 17 95/52 94 L 09/28/17 15:00 98.4 F 64 16 88/49 96 09/28/17 11:00 98.1 F 69 16 97/59 92 L Pain Assessment - Last Documented Pain Intensity 8 Pain Scale Used 0-10 Pain Scale Intake and Output: Intake & Output 09/26/17 09/27/17 09/28/17 09/29/17 11:59 11:59 11:59 11:59 Intake Total 2497 2971 Output Total 200 300 Balance 2297 2671 Lab Results: Accuchecks Date 09/29/17 Date 09/28/17 Date 09/28/17 Date 09/28/17 Time 07:44 Time 01:20 Time 11:00 Accucheck Value: 127 Accucheck Value: 144 Accucheck Value: 133 Multi-Disciplinary Progress Notes: Multi-Disciplinary Progress Notes 09/28/17 14:11 Physical Therapy Note by Agatha Banda IMPROVED FUNCTIONAL MOBILITY TODAY...ABLE TO WALK WITH ROLLER WALKER AND MOD ASSIST +1 APPROX 60' OUT INTO HALLWAY AND BACK TO BEDSIDE CHAIR. LESS OVERT PAIN LIMITATION APPARENT. WILL CONTINUE TO INCREASE ACTIVITY TOLERATED. Initialized on 09/28/17 14:11 - END OF NOTE 09/28/17 11:15 Case Management Note by Millie Ferguson LEVEL I WEB APPROVED, NO LEVEL II REQUIRED. FAXED TO [facility], ATTACHED TO PAPER CHART. Initialized on 09/28/17 11:15 - END OF NOTE 01/18/18 10:48 Case Management Note by Dasia Maciel REFERRAL CALLED TO [facility], SPOKE WITH EUN. FAXED AT THIS TIME. Initialized on 09/28/17 10:48 - END OF NOTE 09/28/17 10:00 (created 09/28/17 10:37) Case Management Note by Dasia Maciel REFERRAL TO [facility] AT THIS TIME. PT IS PLANNING FOR TRANSITION TO [place] FOR SHORT TERM REHAB STAY PRIOR TO RETURN HOME. SON/DAUGHTER- [place] LIVE WITH HER. DECLINED NEED FOR HHC SERVICES. REPORTS THAT SHE HAS A CANE, STANDARD WALKER, AND WALKER WITH WHEELS AT HOME THAT SHE USES PRN. DECLINED ADDNL NEEDS AT PRESENT. WILL FOLLOW. Initialized on 09/28/17 10:37 - END OF NOTE Assessment/Plan (1) UTI (urinary tract infection) Current Visit: Yes Status: Acute Assessment & Plan: on rocephin day #3 today, E coli sensitive. could discharge on cipro for a couple of more days based on sensitivity Code(s): N39.0 - URINARY TRACT INFECTION, SITE NOT SPECIFIED (2) Fall at home Current Visit: Yes Status: Acute Qualifiers: Encounter type: initial encounter Qualified Code(s): W19.XXXA - Unspecified fall, initial encounter; Y92.009 - Unspecified place in unspecified non-institutional (private) residence as the place of occurrence of the external cause; Y92.009 - Unspecified place in unspecified non-institutional ( private) residence as the place of occurrence of the external cause Code(s): W19.XXXA - UNSPECIFIED FALL, INITIAL ENCOUNTER; Y92.099 - UNSP PLACE IN OTH NON-INSTITUTIONAL RESIDENCE PLACE (3) Flank pain Current Visit: Yes Status: Acute Code(s): R10.9 - UNSPECIFIED ABDOMINAL PAIN (4) Diabetes Current Visit: Yes Status: Acute Qualifiers: Diabetes mellitus type: type 2 Code(s): E11.9 - TYPE 2 DIABETES MELLITUS WITHOUT COMPLICATIONS
[2017-09-29] MEDS: ENOXAPARIN SODIUM SQ SCH (09:20)
[2017-09-29] MEDS: ROCEPHIN 1 Gm-D5w 50 ml Bag** 1 G/50 ML IVPB IV SCH (09:20)
[2017-09-29] MEDS: ZOCOR 20MG PO SCH (21:57)
[2017-09-29] MEDS: ceLEXa 20 MG PO SCH (21:57)
[2017-09-30] MEDS: OXYCODONE-ACETAMINOPHEN 10-325 PO PRN ×2 (02:43→10:36)
[2017-09-30] MEDS: Sodium Chloride 0.9% 1000 ML 1,000 ML IV SCH (03:21)
[2017-09-30] MEDS: ROCEPHIN 1 Gm-D5w 50 ml Bag** 1 G/50 ML IVPB IV SCH (09:39)
[2017-09-30] MEDS: ECOTRIN 81 MG PO SCH (09:40)
[2017-09-30] MEDS: hydroDIURIL 25 MG PO SCH (09:40)
[2017-09-30] MEDS: ENOXAPARIN SODIUM SQ SCH (09:40)
[2017-09-30] MEDS: Cozaar 50 MG PO SCH (09:40)
[2017-09-30] MEDS: NEURONTIN 300 MG PO SCH (09:41)
[2017-09-30] MEDS: Protonix 40MG Tablet PO SCH (09:41)
--- NOTE | 2017-09-30 12:27 | PCM.DS ---
Discharge Summary Date of Admission: 09/27/17 09:20 Admitting Physician: TANIYA ESTES Primary Care Provider: JAVED ELLSWORTH STEFANIA Allergies Allergies codeine Allergy (Verified 09/26/17 07:44) Sulfa (Sulfonamide Antibiotics) Allergy (Verified 09/26/17 07:44) Hospital Summary - Hospital Course Hospital Course: Pt admitted with R flank pain and family unable to care for her. She was found to have a UTI which has been treated with rocephin (E. coli on culture, perez- susceptible). CXR non acute. She has steadily improved, flank pain better with percocet. Has been up walking with walker and assist. Is to discharge to [facility] today. CT abd/pelvis on admission showed neg for nephrolithiasis. R renal cysts present; L renal hyperdense lesion either complex/hemorrhagic cyst versus calcified mass. Small hernias noted. nothing acute. WBC on admission 5.4. UA positive nitrites, 5-10 RBC. BUN 24, Cr 1.11. On BUN 15 and Cr 0.98. Blood Cx neg. - Vitals & Intake/Output Vital Signs: Vital Signs Temperature 98.4 F 09/30/17 08:00 Pulse Rate 69 09/30/17 08:00 Respiratory Rate 20 09/30/17 08:00 Blood Pressure 110/56 09/30/17 08:00 O2 Sat by Pulse Oximetry 96 09/30/17 08:00 Intake & Output: Intake & Output 09/28/17 09/29/17 09/30/17 10/01/17 11:59 11:59 11:59 11:59 Intake Total 2497 2971 2716 Output Total 200 300 550 Balance 2297 2671 2166 Weight 97.7 kg - Lab Result Diagrams: 09/28/17 05:25 09/28/17 05:25 Lab Results-Last 24 Hrs: Accuchecks Date 09/30/17 Date 09/30/17 Date 09/29/17 Time 11:30 Time 07:30 Time 15:53 Accucheck Value: 118 Accucheck Value: 111 Accucheck Value: 144 Accucheck Value: 112 Micro Results-Entire Visit: Accuchecks Date 09/30/17 Date 09/30/17 Date 09/29/17 Time 11:30 Time 07:30 Time 15:53 Accucheck Value: 118 Accucheck Value: 111 Accucheck Value: 144 Accucheck Value: 112 Discharge Exam General Appearance: no apparent distress, alert Neurologic Exam: cooperative, disoriented (oriented to place; knows year is 2017 but unsure of the month.) Skin Exam: normal color, warm, dry, No rash Ears, Nose, Throat Exam: moist mucous membranes Neck Exam: normal inspection Respiratory Exam: normal breath sounds, lungs clear, No crackles/rales, No rhonchi, No wheezing Cardiovascular Exam: regular rate/rhythm, normal heart sounds, No murmur Gastrointestinal/Abdomen Exam: soft, normal bowel sounds, tenderness (RUQ), No distention, No mass, No guarding, No rebound Extremity Exam: normal inspection Back Exam: normal inspection, No rash Final Diagnosis/Problem List - Final Discharge Diagnosis/Problem (1) UTI (urinary tract infection) Current Visit: Yes Status: Acute Assessment & Plan: Treated for 3d with IV rocephin and will finish tx with 2d of po cipro (will need to hold celexa while on cipro due to worry for QT prolongation). (2) Diabetes Current Visit: Yes Status: Chronic (3) Fall at home Current Visit: Yes Status: Acute Assessment & Plan: Needs rehab stay at [facility]. (4) Right rib fracture Current Visit: Yes Status: Acute Assessment & Plan: Pain is improved. (5) Coronary artery disease Current Visit: No Status: Chronic (6) Social issues Current Visit: Yes Status: Chronic - Discharge Disposition: Skilled Care @ [facility] Condition: Stable Prescriptions: New Ciprofloxacin [Cipro 500 MG] 500 mg PO BID #4 tablet Cyclobenzaprine HCl 10 mg [Cyclobenzaprine 10 MG] 10 mg PO TID PRN PRN #15 tablet PRN Reason: Muscle Spasms Oxycodone / APAP 10/325 mg [Oxycodone-Acetaminophen 10-325] 1 tab PO Q4H PRN PRN #30 tablet MDD 6 PRN Reason: Pain Continue Simvastatin 40 mg [Zocor 40 mg] 40 mg PO HS Glipizide 5 mg [Glucotrol 5 MG] 5 mg PO DAILY Gabapentin 300 mg PO TID Aspirin 81 mg PO DAILY Omeprazole 20 MG [Prilosec 20 mg] 20 mg PO DAILY Losartan/Hydrochlorothiazide [Losartan-Hctz 100-25 mg Tab] 1 each PO DAILY Albuterol Sulfate [Ventolin Hfa] 18 gm IH Q4-6HPRN PRN PRN Reason: Shortness Of Breath/Wheezing Citalopram Hydrobromide 20 mg* [ceLEXa 20 MG] 20 mg PO HS #30 tablet Follow up with: JAVED ELLSWORTH MD [Primary Care Provider] - Forms: Ambulance Transport Record, Patient Portal Information
[2017-09-30 12:48] VITALS: BP 141/70; PULSE 78; O2SAT 94
== END 2017-09-30 13:20 | DRG 690 ==
LOC: ED 07:33 → INTOOBSV 09:18 → MED SURG 09:18 → OBSVTOIN 09-27 09:20
PROVIDERS: ADMIT Family Medicine; ATTEND Family Medicine
DX: N39.0 Urinary tract infection, site not specified (principal); Z79.4 Long term (current) use of insulin; S22.31XA Fracture of one rib, right side, initial encounter for closed fracture; B96.20 Unspecified Escherichia coli [E. coli] as the cause of diseases classified elsewhere; E11.9 Type 2 diabetes mellitus without complications; W19.XXXA Unspecified fall, initial encounter; Y92.009 Unspecified place in unspecified non-institutional (private) residence as the place of occurrence of the external cause; I25.10 Atherosclerotic heart disease of native coronary artery without angina pectoris; R10.9 Unspecified abdominal pain; F03.90 Unspecified dementia, unspecified severity, without behavioral disturbance, psychotic disturbance, mood disturbance, and anxiety; J45.909 Unspecified asthma, uncomplicated; M19.90 Unspecified osteoarthritis, unspecified site; K21.9 Gastro-esophageal reflux disease without esophagitis; F41.9 Anxiety disorder, unspecified; Z87.891 Personal history of nicotine dependence; Z79.899 Other long term (current) drug therapy
CPT/HCPCS: 36415; 71045; 74176; 80053; 81000; 82962; 83605; 83690; 85025; 87040; 87077; 87086; 87186; 93005; 94760; 96360; 96361; 96365; 96374; 96376; 99285; G0008; G0378; J0696; J1170; J1650; J2405; J3010; P9612; A9270-GY

== ENCOUNTER 2017-11-08 14:37 | Inpatient (IN) | payer MEDICARE ==
[2017-11-08] MEDS ORDERED: DUONEB 0.5-3 MG/3 ml Neb IH ONE (15:32)
[2017-11-08] MEDS: DUONEB 0.5-3 MG/3 ml Neb IH SCH ×3 (15:37→22:28)
[2017-11-08] MEDS ORDERED: XANAX 1 MG PO PRN (16:10)
[2017-11-08] MEDS ORDERED: Sodium Chloride 0.9% 10 ML FLUSH Syringe IV PRN (16:14)
[2017-11-08] MEDS ORDERED: OXYCODONE-ACETAMINOPHEN 10-325 PO PRN (16:17)
--- NOTE | 2017-11-08 16:19 | XRAY ---
Indication: Difficulty breathing. Comparison: September 26, 2017. PA/lateral chest unchanged again hyperinflated without focal infiltrate, consolidation, or large effusion. Heart is not enlarged. No new/acute findings.
[2017-11-08] MEDS ORDERED: Zofran 4 MG/2 ML VIAL IV PRN (16:27)
[2017-11-08] MEDS ORDERED: Lactated Ringers 1,000 ML IV SCH (16:30)
[2017-11-08] MEDS ORDERED: solu-MEDROL 125 MG IV ONE (16:30)
[2017-11-08 16:46] LABS: BASOPHIL % 0.2 % (0.0-0.4); Basophil (Absolute #) 0.02 (0-0.4); Eosinophil % 3.8 % (0.00-5.0); Eosinophil (Absolute #) 0.33 (0-0.5); Granulocyte Absolute (ANC) 5.66 (1.4-6.9); Granulocytes % 65.7 % (36.0-66.0); Hematocrit 39.6 % (35-47); Hemoglobin 13.4 gm/dl (12.0-16.0); Lymphocyte (Absolute #) 1.76 (1.0-4.6); Lymphocytes % 20.4 % (24.0-44.0); Mean Cell Volume 95.4 fl (78-100); Mean Corpuscular Hemoglobin 32.3 pg (26-32); Mean Corpuscular Hgb Concent. 33.8 g/dl (32-36); Mean Platelet Volume 10.9 fl (6-9.5); Monocyte (Absolute #) 0.85 (0.0-1.3); Monocytes % 9.9 % (0.0-12.0); Platelet Count 242 K/mm3 (150-450); Red Blood Count 4.15 M/mm3 (4.1-5.4); Red Cell Distribution Width 12.6 % (11.5-14.0); White Blood Count 8.6 K/mm3 (4.0-10.5)
[2017-11-08 17:13] LABS: BILIRUBIN,TOTAL 0.6 mg/dL (0.2-1.0); Calcium 9.2 mg/dL (8.5-10.1); Carbon Dioxide 22.3 mEq/L (21-32); Creatinine 1 1.37 mg/dl (0.55-1.30); Total Protein 7.3 gm/dL (6.4-8.2)
[2017-11-08 17:16] LABS: Potassium 2.9 mEq/L (3.5-5.1)
[2017-11-08] MEDS ORDERED: K-LYTE 25 MEQ PO ONE (18:08)
[2017-11-08] MEDS ORDERED: Cyclobenzaprine 10 MG PO PRN (18:08)
[2017-11-08] MEDS ORDERED: solu-MEDROL 125 MG ONE (19:17)
[2017-11-08] MEDS: ROCEPHIN 1 Gm-D5w 50 ml Bag** 1 G/50 ML IVPB IV SCH (19:19)
[2017-11-08] MEDS: Sodium Chloride 0.9% W/ 20 mEq KCl/LITER 1,000 ML IV SCH (19:20)
[2017-11-08] MEDS ORDERED: ENOXAPARIN SODIUM SQ SCH (20:00)
[2017-11-08] MEDS: Zithromax 500 MG/ 250 ML NaCl Premix 500 MG/250 ML IVPB IV SCH (20:09)
[2017-11-08] MEDS: NEURONTIN 300 MG PO SCH (21:17)
[2017-11-08] MEDS ORDERED: Sodium Chloride 0.9% 10 ML FLUSH Syringe IV SCH (22:00)
[2017-11-09] MEDS: solu-MEDROL 125 MG IV SCH ×4 (00:32→18:12)
[2017-11-09] MEDS: DUONEB 0.5-3 MG/3 ml Neb IH SCH ×6 (02:17→23:46)
[2017-11-09 06:49] LABS: Calcium 8.4 mg/dL (8.5-10.1); Carbon Dioxide 24.9 mEq/L (21-32); Creatinine 1 1.04 mg/dl (0.55-1.30); Potassium 3.7 mEq/L (3.5-5.1)
[2017-11-09] MEDS: NovoLOG Insulin SQ PRN ×4 (07:51→22:50)
--- NOTE | 2017-11-09 08:32 | PCM.NOTE ---
Date and Time: 11/09/17830 Subjective Assessment: patient still coughing a lot, on oxygen. no new complaints. tolerating po Objective Exam General Appearance: no apparent distress, alert Respiratory Exam: prolonged expirations, wheezing Cardiovascular Exam: regular rate/rhythm, normal heart sounds Gastrointestinal/Abdomen Exam: soft, No tenderness, No mass Extremity Exam: normal inspection, normal range of motion OBJECTIVE DATA Vital Signs: Vital Signs - 24 hr Temp Pulse Resp BP Pulse Ox 11/09/17 07:00 98.1 F 97 H 20 102/58 20 L 11/09/17 03:00 97.9 F 100 H 18 100/60 96 11/09/17 02:17 94 H 18 97 11/08/17 23:00 97.8 F 103 H 18 88/50 95 11/08/17 22:29 97 H 20 96 11/08/17 19:05 97.8 F 90 17 89/55 96 11/08/17 17:47 90 20 96 11/08/17 16:00 97.0 F 102 H 22 129/60 97 11/08/17 15:45 102 H 22 97 11/08/17 15:23 97.0 F 106 H 129/60 11/08/17 15:05 98.0 F 106 H 20 129/60 97 Oxygen-Last 24 hours O2 Percentage 2 Liters = 28% O2 Percentage 2 Liters = 28% O2 Percentage 2 Liters = 28% O2 Percentage 2 Liters = 28% Oxygen Flowrate (L/min)-RT 2 Pain Assessment - Last Documented Pain Intensity 0 Pain Scale Used 0-10 Pain Scale Intake and Output: Intake & Output 11/06/17 11/07/17 11/08/17 11/09/17 11:59 11:59 11:59 11:59 Intake Total 1100 Output Total 200 Balance 900 Weight 101 kg Lab Results: Accuchecks Date 11/08/17 Date 11/08/17 Time 16:30 Accucheck Value: 116 Accucheck Value: 102 Lab Results-Last 24 Hours 11/08/17 11/08/17 11/09/17 Range/Units 16:10 16:10 06:06 WBC 8.6 (4.0-10.5) K/mm3 RBC 4.15 (4.1-5.4) M/mm3 Hgb 13.4 (12.0-16.0) gm/dl Hct 39.6 (35-47) % MCV 95.4 (78-100) fl MCH 32.3 H (26-32) pg MCHC 33.8 (32-36) g/dl RDW 12.6 (11.5-14.0) % Plt Count 242 (150-450) K/mm3 MPV 10.9 H (6-9.5) fl Gran % 65.7 (36.0-66.0) % Lymphocytes % 20.4 L (24.0-44.0) % Monocytes % 9.9 (0.0-12.0) % Eosinophils % 3.8 (0.00-5.0) % Basophils % 0.2 (0.0-0.4) % Basophils # 0.02 (0-0.4) Sodium 144 137 (136-145) mEq/L Potassium 2.9 L* 3.7 (3.5-5.1) mEq/L Chloride 104 101 (98-107) mEq/L Carbon Dioxide 22.3 24.9 (21-32) mEq/L Anion Gap 20.0 H 15.0 (5-15) MEQ/L BUN 25 H 18 (9-20) mg/dL Creatinine 1.37 H 1.04 (0.55-1.30) mg/dl Estimated GFR 40 55 ML/MIN Glucose 102 258 H (70-110) MG/DL Calcium 9.2 8.4 L (8.5-10.1) mg/dL Total Bilirubin 0.60 (0.2-1.0) mg/dL AST 13 L (15-37) U/L ALT 27 (12-78) U/L Alkaline Phosphatase 63 (46-116) U/L Serum Total Protein 7.3 (6.4-8.2) gm/dL Albumin 4.0 (3.4-5.0) g/dL Radiology Exams: Radiology Procedures Category Date Time Status CHEST 2 VIEWS (PA AND LAT) Routine Exams 11/08/17 15:35 Completed Assessment/Plan (1) COPD with acute exacerbation Current Visit: Yes Status: Acute Assessment & Plan: on IV solu medrol, nebs and rocephin/zithromax Code(s): J44.1 - CHRONIC OBSTRUCTIVE PULMONARY DISEASE W (ACUTE) EXACERBATION (2) Failure of outpatient treatment Current Visit: No Status: Acute Code(s): Z78.9 - OTHER SPECIFIED HEALTH STATUS (3) Diabetes Current Visit: No Status: Chronic Assessment & Plan: continue mod SSI Code(s): E11.9 - TYPE 2 DIABETES MELLITUS WITHOUT COMPLICATIONS
[2017-11-09] MEDS: ROCEPHIN 1 Gm-D5w 50 ml Bag** 1 G/50 ML IVPB IV SCH (09:17)
[2017-11-09] MEDS: Protonix 40MG Tablet PO SCH (09:18)
[2017-11-09] MEDS: ceLEXa 20 MG PO SCH (09:18)
[2017-11-09] MEDS: ECOTRIN 81 MG PO SCH (09:18)
[2017-11-09] MEDS: NEURONTIN 300 MG PO SCH ×3 (09:18→22:48)
[2017-11-09] MEDS: Zithromax 500 MG/ 250 ML NaCl Premix 500 MG/250 ML IVPB IV SCH (09:50)
[2017-11-09] MEDS ORDERED: BABY ASPIRIN 81 MG CHEW PO SCH (10:00)
[2017-11-09] MEDS ORDERED: Cozaar 50 MG PO SCH (10:00)
[2017-11-09] MEDS ORDERED: hydroDIURIL 25 MG PO SCH (10:00)
[2017-11-09] MEDS: Sodium Chloride 0.9% W/ 20 mEq KCl/LITER 1,000 ML IV SCH (16:48)
[2017-11-09] MEDS ORDERED: Sodium Chloride 0.9% 500 ML 500 ML IV ONE (19:47)
[2017-11-09] MEDS: ENOXAPARIN SODIUM SQ SCH (22:49)
[2017-11-10] MEDS: solu-MEDROL 125 MG IV SCH ×5 (01:22→23:07)
[2017-11-10] MEDS: DUONEB 0.5-3 MG/3 ml Neb IH SCH ×6 (03:25→22:26)
[2017-11-10 06:14] LABS: Hematocrit 34.9 % (35-47); Hemoglobin 11.5 gm/dl (12.0-16.0); Mean Cell Volume 98.3 fl (78-100); Platelet Count 210 K/mm3 (150-450); Red Blood Count 3.55 M/mm3 (4.1-5.4); Red Cell Distribution Width 12.9 % (11.5-14.0); White Blood Count 13.9 K/mm3 (4.0-10.5)
[2017-11-10 06:22] LABS: Mean Corpuscular Hemoglobin 32.3 pg (26-32)
[2017-11-10 06:40] LABS: ANION GAP 15.1 MEQ/L (5-15); Calcium 8.5 mg/dL (8.5-10.1); Carbon Dioxide 26.2 mEq/L (21-32); Creatinine 1 1.08 mg/dl (0.55-1.30)
[2017-11-10 07:18] LABS: BAND 3 % (0.0-2.0); Lymphocytes 2 % (24-44); Neutrophils 95 % (36.0-66.0); Total Cells Counted 100
[2017-11-10 07:19] LABS: Platelet Estimate NORMAL (NORMAL)
--- NOTE | 2017-11-10 08:32 | PCM.NOTE ---
Date and Time: 11/10/17830 Subjective Assessment: patient reports she is feeling some better, on oxygen therapy. still has some cough, tolerating po Objective Exam General Appearance: no apparent distress, alert Skin Exam: normal color, warm, dry Respiratory Exam: wheezing Cardiovascular Exam: regular rate/rhythm, normal heart sounds Gastrointestinal/Abdomen Exam: soft, No tenderness, No mass Extremity Exam: normal inspection, normal range of motion OBJECTIVE DATA Vital Signs: Vital Signs - 24 hr Temp Pulse Resp BP Pulse Ox 11/10/17 07:00 97.5 F 95 H 26 H 97 11/10/17 04:00 20 11/10/17 03:25 76 16 93 L 11/10/17 03:00 98.0 F 84 20 108/76 98 11/10/17 00:00 18 11/09/17 23:46 70 18 96 11/09/17 23:00 98.1 F 72 18 89/53 97 11/09/17 20:00 18 11/09/17 19:35 79 20 95 11/09/17 19:00 98.2 F 80 18 74/39 96 11/09/17 15:00 98.7 F 98 H 20 80/48 96 11/09/17 13:55 104 H 20 96 11/09/17 12:00 20 11/09/17 11:00 98.6 F 97 H 20 106/62 97 11/09/17 10:30 108 H 16 97 11/09/17 08:57 88 16 98 Oxygen-Last 24 hours O2 Percentage 2 Liters = 28% O2 Percentage 2 Liters = 28% O2 Percentage 2 Liters = 28% O2 Percentage 2 Liters = 28% Oxygen Flowrate (L/min)-RT 2 Pain Assessment - Last Documented Pain Intensity 0 Pain Scale Used 0-10 Pain Scale Intake and Output: Intake & Output 11/07/17 11/08/17 11/09/17 11/10/17 11:59 11:59 11:59 11:59 Intake Total 1340 2791 Output Total 200 Balance 1140 2791 Weight 101 kg Lab Results: Accuchecks Date 11/09/17 Time 22:00 Accucheck Value: 323 Accucheck Value: 237 Accucheck Value: 290 Lab Results-Last 24 Hours 11/10/17 11/10/17 Range/Units 06:00 06:00 WBC 13.9 H (4.0-10.5) K/mm3 RBC 3.55 L (4.1-5.4) M/mm3 Hgb 11.5 L (12.0-16.0) gm/dl Hct 34.9 L (35-47) % MCV 98.3 (78-100) fl MCH 32.3 H (26-32) pg MCHC 33.0 (32-36) g/dl RDW 12.9 (11.5-14.0) % Plt Count 210 (150-450) K/mm3 MPV 11.0 H (6-9.5) fl Segmented Neutrophils 95 H (36.0-66.0) % Band Neutrophils 3 H (0.0-2.0) % Lymphocytes (Manual) 2 L (24-44) % Differential Comment NORMAL Platelet Estimate NORMAL (NORMAL) Sodium 142 (136-145) mEq/L Potassium 4.0 (3.5-5.1) mEq/L Chloride 105 (98-107) mEq/L Carbon Dioxide 26.2 (21-32) mEq/L Anion Gap 15.1 H (5-15) MEQ/L BUN 16 (9-20) mg/dL Creatinine 1.08 (0.55-1.30) mg/dl Estimated GFR 53 ML/MIN Glucose 220 H (70-110) MG/DL Calcium 8.5 (8.5-10.1) mg/dL Radiology Exams: Radiology Procedures Category Date Time Status CHEST 2 VIEWS (PA AND LAT) Routine Exams 11/08/17 15:35 Completed Assessment/Plan (1) COPD with acute exacerbation Current Visit: Yes Status: Acute Assessment & Plan: continue rocephin/zithromax, nebs and IV steroids. Code(s): J44.1 - CHRONIC OBSTRUCTIVE PULMONARY DISEASE W (ACUTE) EXACERBATION (2) Failure of outpatient treatment Current Visit: No Status: Acute Code(s): Z78.9 - OTHER SPECIFIED HEALTH STATUS (3) Diabetes Current Visit: No Status: Chronic Code(s): E11.9 - TYPE 2 DIABETES MELLITUS WITHOUT COMPLICATIONS
[2017-11-10] MEDS: Sodium Chloride 0.9% W/ 20 mEq KCl/LITER 1,000 ML IV SCH (10:27)
[2017-11-10] MEDS: ROCEPHIN 1 Gm-D5w 50 ml Bag** 1 G/50 ML IVPB IV SCH (10:28)
[2017-11-10] MEDS: Protonix 40MG Tablet PO SCH (10:30)
[2017-11-10] MEDS: ECOTRIN 81 MG PO SCH (10:30)
[2017-11-10] MEDS: NEURONTIN 300 MG PO SCH ×3 (10:30→23:07)
[2017-11-10] MEDS: ceLEXa 20 MG PO SCH (10:30)
[2017-11-10] MEDS: NovoLOG Insulin SQ PRN ×4 (10:36→23:08)
[2017-11-10] MEDS: Zithromax 500 MG/ 250 ML NaCl Premix 500 MG/250 ML IVPB IV SCH (11:32)
[2017-11-10] MEDS: Tussionex Pennkinetic Susp PO PRN (15:48)
[2017-11-10] MEDS: ENOXAPARIN SODIUM SQ SCH (23:07)
[2017-11-11] MEDS: DUONEB 0.5-3 MG/3 ml Neb IH SCH ×5 (02:47→23:09)
[2017-11-11] MEDS: Sodium Chloride 0.9% W/ 20 mEq KCl/LITER 1,000 ML IV SCH ×2 (03:00→17:20)
[2017-11-11] MEDS: Tussionex Pennkinetic Susp PO PRN ×2 (03:48→17:16)
[2017-11-11] MEDS: solu-MEDROL 125 MG IV SCH ×3 (06:09→17:06)
[2017-11-11 06:24] LABS: Hematocrit 34.1 % (35-47); Hemoglobin 11.1 gm/dl (12.0-16.0); Mean Cell Volume 99.7 fl (78-100); Mean Corpuscular Hgb Concent. 32.6 g/dl (32-36); Mean Platelet Volume 11.1 fl (6-9.5); Platelet Count 210 K/mm3 (150-450); Red Blood Count 3.42 M/mm3 (4.1-5.4); Red Cell Distribution Width 13.1 % (11.5-14.0); White Blood Count 11.8 K/mm3 (4.0-10.5)
[2017-11-11 06:52] LABS: BLOOD UREA NITROGEN 17 mg/dL (9-20); CHLORIDE 105 mEq/L (98-107); Calcium 8.3 mg/dL (8.5-10.1); Carbon Dioxide 21.9 mEq/L (21-32); Glucose 213 MG/DL (70-110); Potassium 4.1 mEq/L (3.5-5.1); SODIUM 139 mEq/L (136-145)
[2017-11-11 07:27] LABS: Mean Corpuscular Hemoglobin 32.4 pg (26-32)
[2017-11-11] MEDS: ceLEXa 20 MG PO SCH (08:17)
[2017-11-11] MEDS: NEURONTIN 300 MG PO SCH ×3 (08:17→21:49)
[2017-11-11] MEDS: ECOTRIN 81 MG PO SCH (08:17)
[2017-11-11] MEDS: Protonix 40MG Tablet PO SCH (08:17)
[2017-11-11] MEDS: NovoLOG Insulin SQ PRN ×3 (08:18→21:48)
[2017-11-11 09:30] LABS: BAND 1 % (0.0-2.0); Lymphocytes 11 % (24-44); Monocyte 2 % (0.0-12.0); Neutrophils 86 % (36.0-66.0); Platelet Estimate NORMAL (NORMAL); Total Cells Counted 100; Toxic Granulation 1+
[2017-11-11] MEDS: ROCEPHIN 1 Gm-D5w 50 ml Bag** 1 G/50 ML IVPB IV SCH (09:30)
[2017-11-11] MEDS: Zithromax 500 MG/ 250 ML NaCl Premix 500 MG/250 ML IVPB IV SCH (10:12)
--- NOTE | 2017-11-11 13:09 | PCM.NOTE ---
Date and Time: 11/11/17 1304 Subjective Assessment: Pt states her breathing is no better than at admission. Arlet po well. - Review of Systems Constitutional: No Fever Respiratory: Cough, Short Of Breath Objective Exam General Appearance: mild distress (with coughing), obese Neurologic Exam: alert, cooperative Skin Exam: normal color, warm, dry, No rash Respiratory Exam: diminished breath sounds (fair air exchange), wheezing ( expiratory, throughout), other (tachypneic. on O2 per NC), No crackles/rales, No rhonchi Cardiovascular Exam: other (heart sounds distant) Extremity Exam: No pedal edema, No swelling OBJECTIVE DATA Vital Signs: Vital Signs - 24 hr Temp Pulse Resp BP Pulse Ox 11/11/17 12:32 97.9 F 84 20 146/80 96 11/11/17 11:59 18 11/11/17 10:00 89 18 98 11/11/17 08:00 18 11/11/17 07:11 97.9 F 74 18 98/58 98 11/11/17 06:00 74 18 98 11/11/17 04:00 97.8 F 78 24 95/50 98 11/11/17 02:47 82 22 98 11/11/17 00:21 97.9 F 88 24 116/56 100 11/11/17 00:00 24 11/10/17 22:28 73 18 98 11/10/17 20:00 97.3 F 110 H 18 112/51 97 11/10/17 18:13 97 H 16 94 L 11/10/17 16:37 97.9 F 87 24 87/49 100 11/10/17 15:55 68 18 94 L 11/10/17 15:42 18 Oxygen-Last 24 hours O2 Percentage 2 Liters = 28% O2 Percentage 2 Liters = 28% O2 Percentage 2 Liters = 28% O2 Percentage 2 Liters = 28% O2 Percentage 3 Liters = 32% Pain Assessment - Last Documented Pain Intensity 0 Pain Scale Used 0-10 Pain Scale Intake and Output: Intake & Output 11/09/17 11/10/17 11/11/17 11/12/17 11:59 11:59 11:59 11:59 Intake Total 1340 3271 3378 Output Total 200 400 Balance 1140 3271 2978 Weight 101 kg 101 kg Lab Results: Accuchecks Date 11/11/17 Date 11/11/17 Date 11/10/17 Date 11/10/17 Time 11:30 Time 07:30 Time 21:30 Time 16:30 Accucheck Value: 237 Accucheck Value: 210 Accucheck Value: 194 Accucheck Value: 266 Lab Results-Last 24 Hours 11/11/17 11/11/17 Range/Units 05:35 05:35 WBC 11.8 H (4.0-10.5) K/mm3 RBC 3.42 L (4.1-5.4) M/mm3 Hgb 11.1 L (12.0-16.0) gm/dl Hct 34.1 L (35-47) % MCV 99.7 (78-100) fl MCH 32.4 H (26-32) pg MCHC 32.6 (32-36) g/dl RDW 13.1 (11.5-14.0) % Plt Count 210 (150-450) K/mm3 MPV 11.1 H (6-9.5) fl Segmented Neutrophils 86 H (36.0-66.0) % Band Neutrophils 1 (0.0-2.0) % Lymphocytes (Manual) 11 L (24-44) % Monocytes (Manual) 2 (0.0-12.0) % Differential Comment NORMAL Toxic Granulation 1+ Platelet Estimate NORMAL (NORMAL) Sodium 139 (136-145) mEq/L Potassium 4.1 (3.5-5.1) mEq/L Chloride 105 (98-107) mEq/L Carbon Dioxide 21.9 (21-32) mEq/L Anion Gap 16.0 H (5-15) MEQ/L BUN 17 (9-20) mg/dL Creatinine 0.90 (0.55-1.30) mg/dl Estimated GFR > 60 ML/MIN Glucose 213 H (70-110) MG/DL Calcium 8.3 L (8.5-10.1) mg/dL Assessment/Plan (1) COPD with acute exacerbation Current Visit: Yes Status: Acute Assessment & Plan: Not much improvement per pt and she still sounds quite wheezy. Will increase the steroid for now, change antibiotic from rocephin/zithromax to levaquin. Try to get sputum culture. Try mucinex. Repeat CXR, last on 11/08 was neg for acute issue. Code(s): J44.1 - CHRONIC OBSTRUCTIVE PULMONARY DISEASE W (ACUTE) EXACERBATION (2) Diabetes Current Visit: No Status: Chronic Qualifiers: Diabetes mellitus type: type 2 Assessment & Plan: BS elevated here, of course she is on steroids, she is worried that it will be higher now on increased steroid dose but will just continue sliding scale. Code(s): E11.9 - TYPE 2 DIABETES MELLITUS WITHOUT COMPLICATIONS
[2017-11-11] MEDS: LEVOFLOXACIN 750MG/150ML D5W 750 MG/150 ML BAG IV SCH (14:05)
[2017-11-11] MEDS: Mucinex 600MG ER Tabs PO SCH ×2 (14:09→21:48)
[2017-11-11] MEDS: ENOXAPARIN SODIUM SQ SCH (21:49)
--- NOTE | 2017-11-11 21:50 | XRAY ---
Indication: Cough and dyspnea. COPD. Comparison: November 08, 2017. PA/lateral chest again hyperinflated with chronic interstitial lung markings. No focal infiltrate, consolidation, or large effusion. Heart is not enlarged. No new/acute findings. Impression: Stable nonacute hyperinflated chest. Comment: Preliminary interpretation was made by [facility]. No critical discrepancy.
[2017-11-12] MEDS: solu-MEDROL 125 MG IV SCH ×4 (00:03→17:37)
[2017-11-12] MEDS: DUONEB 0.5-3 MG/3 ml Neb IH SCH ×6 (03:55→23:17)
[2017-11-12] MEDS: Sodium Chloride 0.9% W/ 20 mEq KCl/LITER 1,000 ML IV SCH ×2 (04:00→19:27)
[2017-11-12] MEDS: NEURONTIN 300 MG PO SCH ×3 (08:22→22:30)
[2017-11-12] MEDS: Mucinex 600MG ER Tabs PO SCH ×2 (08:22→22:30)
[2017-11-12] MEDS: ECOTRIN 81 MG PO SCH (08:22)
[2017-11-12] MEDS: Protonix 40MG Tablet PO SCH (08:22)
[2017-11-12] MEDS: NovoLOG Insulin SQ PRN ×4 (08:22→22:30)
[2017-11-12] MEDS: Tussionex Pennkinetic Susp PO PRN (08:26)
[2017-11-12] MEDS: LEVOFLOXACIN 750MG/150ML D5W 750 MG/150 ML BAG IV SCH (10:08)
--- NOTE | 2017-11-12 13:16 | PCM.NOTE ---
Date and Time: 11/12/17 1312 Subjective Assessment: Cough maybe a little better, pt still complaining of SOB and wheeze. Cough is more productive with addition of mucinex. Has been oriented for nurse but is disoriented for me. lost her IV access last night but it was replaced. - Review of Systems Constitutional: No Fever Respiratory: Cough All Other Systems: Unable due to condition Objective Exam General Appearance: alert, other (appears moderately ill as yesterday) Neurologic Exam: cooperative, disoriented (knows she's in [place] "S-A-H; S-H- C..."; thinks the year is 2019.) Skin Exam: warm, dry, No rash Respiratory Exam: diminished breath sounds (fair air exchange), wheezing (exp; throughout), No crackles/rales, No rhonchi OBJECTIVE DATA Vital Signs: Vital Signs - 24 hr Temp Pulse Resp BP Pulse Ox 11/12/17 12:39 98 F 74 20 108/58 96 11/12/17 11:00 77 20 96 11/12/17 08:00 18 11/12/17 07:49 71 18 98 11/12/17 07:29 97.8 F 88 20 138/80 95 11/12/17 04:00 97.3 F 80 20 159/56 98 11/12/17 03:00 84 20 98 11/12/17 00:10 98.1 F 83 20 125/58 99 11/12/17 00:00 20 11/11/17 23:11 74 22 96 11/11/17 20:05 98.1 F 75 22 129/67 97 11/11/17 20:00 22 11/11/17 19:25 85 24 95 11/11/17 16:18 97.7 F 86 22 132/86 96 11/11/17 16:00 22 11/11/17 14:00 88 20 98 Oxygen-Last 24 hours O2 Percentage 2 Liters = 28% O2 Percentage 2 Liters = 28% O2 Percentage 2 Liters = 28% O2 Percentage 2 Liters = 28% O2 Percentage 2 Liters = 28% Pain Assessment - Last Documented Pain Intensity 2 Pain Scale Used 0-10 Pain Scale Intake and Output: Intake & Output 11/10/17 11/11/17 11/12/17 11/13/17 11:59 11:59 11:59 11:59 Intake Total 3010 5138 3369 Output Total 400 750 Balance 5496 8405 1096 Weight 101 kg Lab Results: Accuchecks Date 11/12/17 Date 11/11/17 Date 11/11/17 Time 07:30 Time 22:00 Time 16:30 Accucheck Value: 213 Accucheck Value: 181 Accucheck Value: 191 Radiology Exams: Radiology Procedures Category Date Time Status CHEST 2 VIEWS (PA AND LAT) Routine Exams 11/11/17 15:01 Completed Assessment/Plan (1) COPD with acute exacerbation Current Visit: Yes Status: Acute Assessment & Plan: Better since yesterday; whether that is the natural course of her illness or due to adding mucinex, levaquin instead of rocephin/zithromax, and increasing IV steroids. Code(s): J44.1 - CHRONIC OBSTRUCTIVE PULMONARY DISEASE W (ACUTE) EXACERBATION (2) Diabetes Current Visit: No Status: Chronic Qualifiers: Diabetes mellitus type: type 2 Assessment & Plan: BS 180s-200s today Code(s): E11.9 - TYPE 2 DIABETES MELLITUS WITHOUT COMPLICATIONS
[2017-11-12] MEDS: ENOXAPARIN SODIUM SQ SCH (22:30)
[2017-11-13] MEDS: solu-MEDROL 125 MG IV SCH ×4 (01:25→17:37)
[2017-11-13] MEDS: DUONEB 0.5-3 MG/3 ml Neb IH SCH ×7 (02:52→23:38)
--- NOTE | 2017-11-13 07:57 | PCM.NOTE ---
Date and Time: 11/13/17 0756 Subjective Assessment: patient is feeling a little better, still has some wheezing and cough. no fever Objective Exam General Appearance: no apparent distress, alert Skin Exam: normal color, warm, dry Respiratory Exam: wheezing Cardiovascular Exam: regular rate/rhythm, normal heart sounds Gastrointestinal/Abdomen Exam: soft, No tenderness, No mass Extremity Exam: normal inspection, normal range of motion OBJECTIVE DATA Vital Signs: Vital Signs - 24 hr Temp Pulse Resp BP Pulse Ox 11/13/17 07:37 97.8 F 82 20 126/70 97 11/13/17 07:10 67 18 97 11/13/17 04:20 98.1 F 84 24 133/59 96 11/13/17 04:00 20 11/13/17 02:53 78 20 97 11/13/17 00:20 97.7 F 85 24 107/54 97 11/13/17 00:00 20 11/12/17 23:00 82 20 96 11/12/17 20:00 98.2 F 70 18 133/62 95 11/12/17 19:00 70 18 95 11/12/17 16:10 98 F 87 22 112/58 97 11/12/17 15:00 18 L 99 11/12/17 12:39 98 F 74 20 108/58 96 11/12/17 12:00 20 11/12/17 11:00 77 20 96 11/12/17 08:00 18 Oxygen-Last 24 hours O2 Percentage 2 Liters = 28% O2 Percentage 2 Liters = 28% O2 Percentage 2 Liters = 28% O2 Percentage 2 Liters = 28% O2 Percentage 2 Liters = 28% Pain Assessment - Last Documented Pain Intensity 0 Pain Scale Used 0-10 Pain Scale Intake and Output: Intake & Output 11/10/17 11/11/17 11/12/17 11/13/17 11:59 11:59 11:59 11:59 Intake Total 3271 5968 6616 2710 Output Total 400 750 400 Balance 3271 6546 2870 2315 Weight 101 kg Lab Results: Accuchecks Date 11/12/17 Date 11/12/17 Date 11/12/17 Time 21:40 Time 16:30 Time 11:30 Accucheck Value: 191 Accucheck Value: 251 Accucheck Value: 240 Radiology Exams: Radiology Procedures Category Date Time Status CHEST 2 VIEWS (PA AND LAT) Routine Exams 11/11/17 15:01 Completed Assessment/Plan (1) COPD with acute exacerbation Current Visit: Yes Status: Acute Assessment & Plan: will decrease IV solu medrol today, continue levaquin. seems to be improving. hopefully will be ready for discharge tomorrow Code(s): J44.1 - CHRONIC OBSTRUCTIVE PULMONARY DISEASE W (ACUTE) EXACERBATION (2) Failure of outpatient treatment Current Visit: Yes Status: Acute Code(s): Z78.9 - OTHER SPECIFIED HEALTH STATUS (3) Diabetes Current Visit: No Status: Chronic Qualifiers: Diabetes mellitus type: type 2 Code(s): E11.9 - TYPE 2 DIABETES MELLITUS WITHOUT COMPLICATIONS
[2017-11-13] MEDS: NovoLOG Insulin SQ PRN ×3 (08:55→16:43)
[2017-11-13] MEDS: ECOTRIN 81 MG PO SCH (08:57)
[2017-11-13] MEDS: Mucinex 600MG ER Tabs PO SCH ×2 (08:58→21:46)
[2017-11-13] MEDS: NEURONTIN 300 MG PO SCH ×3 (08:58→21:46)
[2017-11-13] MEDS: Protonix 40MG Tablet PO SCH (08:58)
[2017-11-13] MEDS: LEVOFLOXACIN 750MG/150ML D5W 750 MG/150 ML BAG IV SCH (09:14)
[2017-11-13] MEDS: Sodium Chloride 0.9% W/ 20 mEq KCl/LITER 1,000 ML IV SCH (17:35)
[2017-11-13] MEDS: ENOXAPARIN SODIUM SQ SCH (21:46)
[2017-11-14] MEDS: solu-MEDROL 125 MG IV SCH ×2 (00:44→06:30)
[2017-11-14] MEDS: Tussionex Pennkinetic Susp PO PRN (03:00)
[2017-11-14] MEDS: DUONEB 0.5-3 MG/3 ml Neb IH SCH ×3 (03:39→10:58)
[2017-11-14 05:37] LABS: Granulocyte Absolute (ANC) 6.59 (1.4-6.9); Hematocrit 34.6 % (35-47); Hemoglobin 11.4 gm/dl (12.0-16.0); Mean Cell Volume 97.2 fl (78-100); Mean Corpuscular Hgb Concent. 32.9 g/dl (32-36); Mean Platelet Volume 10.6 fl (6-9.5); Platelet Count 206 K/mm3 (150-450); Red Blood Count 3.56 M/mm3 (4.1-5.4); Red Cell Distribution Width 12.7 % (11.5-14.0); White Blood Count 8.2 K/mm3 (4.0-10.5)
[2017-11-14 06:02] LABS: ALBUMIN 3.5 g/dl (3.5-5.0); ALKALINE PHOSPHATASE 50 U/L (38-126); ANION GAP 11.6 MEQ/L; BLOOD UREA NITROGEN 18 mg/dl (7-17); CHLORIDE 98 mEq/L (98-107); Calcium 9.2 mg/dl (8.4-10.2); Carbon Dioxide 31 mmol/L (22-30); Creatinine 1 0.74 mg/dl (0.52-1.04); Glucose 201 mg/dL (74-106); Potassium 4.2 mmol/L (3.5-5.1); SGOT/AST 26 U/L (14-36); SGPT/ALT 30 U/L (0-35); SODIUM 136 mmol/L (137-145); Total Protein 5.8 mg/dl (6.3-8.2)
[2017-11-14 06:49] LABS: Lymphocytes 9 % (24-44); Monocyte 6 % (0.0-12.0); Neutrophils 85 % (36.0-66.0); Platelet Estimate NORMAL (NORMAL); Total Cells Counted 100
[2017-11-14] MEDS: NovoLOG Insulin SQ PRN (07:36)
--- NOTE | 2017-11-14 08:59 | PCM.DS ---
Discharge Summary Date of Admission: 11/08/17 14:55 Admitting Physician: JAVED ELLSWORTH Primary Care Provider: JAVED ELLSWORTH Allergies Allergies codeine Allergy (Verified 09/26/17 07:44) Sulfa (Sulfonamide Antibiotics) Allergy (Verified 09/26/17 07:44) Hospital Summary - Hospital Course Hospital Course: patient was admitted with cough, productive and wheezing and shortness of breath. has improved on exam and seems back to baseline - Vitals & Intake/Output Vital Signs: Vital Signs Temperature 98.1 F 11/14/17 07:59 Pulse Rate 77 11/14/17 07:59 Respiratory Rate 20 11/14/17 07:59 Blood Pressure 124/60 11/14/17 07:59 O2 Sat by Pulse Oximetry 97 11/14/17 07:59 Oxygen-Last Documented O2 Percentage 2 Liters = 28% Intake & Output: Intake & Output 11/11/17 11/12/17 11/13/17 11/14/17 11:59 11:59 11:59 11:59 Intake Total 3378 3369 2714 2065 Output Total 400 750 400 Balance 2978 4329 2314 2065 Weight 101 kg - Lab Result Diagrams: 11/14/17 05:00 11/14/17 05:00 Lab Results-Last 24 Hrs: Accuchecks Date 11/13/17 Time 11:30 Accucheck Value: 217 Accucheck Value: 266 Accucheck Value: 228 Lab Results-Last 24 Hours 11/14/17 11/14/17 Range/Units 05:00 05:00 WBC 8.2 (4.0-10.5) K/mm3 RBC 3.56 L (4.1-5.4) M/mm3 Hgb 11.4 L (12.0-16.0) gm/dl Hct 34.6 L (35-47) % MCV 97.2 (78-100) fl MCH 32.0 (26-32) pg MCHC 32.9 (32-36) g/dl RDW 12.7 (11.5-14.0) % Plt Count 206 (150-450) K/mm3 MPV 10.6 H (6-9.5) fl Segmented Neutrophils 85 H (36.0-66.0) % Lymphocytes (Manual) 9 L (24-44) % Monocytes (Manual) 6 (0.0-12.0) % Differential Comment NORMAL Platelet Estimate NORMAL (NORMAL) Sodium 136 L (137-145) mmol/L Potassium 4.2 (3.5-5.1) mmol/L Chloride 98 (98-107) mEq/L Carbon Dioxide 31 H (22-30) mmol/L Anion Gap 11.6 MEQ/L BUN 18 H (7-17) mg/dl Creatinine 0.74 (0.52-1.04) mg/dl Estimated GFR > 60 ML/MIN Glucose 201 H (74-106) mg/dL Calcium 9.2 (8.4-10.2) mg/dl Magnesium 1.6 (1.6-2.3) mg/dl Total Bilirubin 0.50 (0.2-1.3) mg/d? AST 26 (14-36) U/L ALT 30 (0-35) U/L Alkaline Phosphatase 50 (38-126) U/L Serum Total Protein 5.8 L (6.3-8.2) mg/dl Albumin 3.5 (3.5-5.0) g/dl Micro Results-Entire Visit: Microbiology 11/08/17 16:18 - Final Blood Not Reportable Blood Culture - Final NO GROWTH 11/08/17 16:10 - Final Blood Not Reportable Blood Culture - Final NO GROWTH 11/11/17 14:50 Gram Stain - Final Sputum - Expectorant Accuchecks Date 11/13/17 Time 11:30 Accucheck Value: 217 Accucheck Value: 266 Accucheck Value: 228 - Procedures and Test Procedures and Tests throughout Hospitalization: Therapy Orders & Screens 11/08/17 15:30 Respiratory Nebulizer Q4H Comment: Diagnosis: Acute Exacerbation of COPD,Failed outpatient therapy Name of medication?: duonebs 2.5/0.5mg INH 11/08/17 15:45 Oxygen NASAL CANNULA 2 lpm Comment: Diagnosis: Acute Exacerbation of COPD,Failed outpatient therapy 11/08/17 16:35 OT Screen per Nursing Assess ONCE Comment: Protocol Order Physician Instructions: Greater than 3 points order OT Admission Screening Reason For Exam: Triggered on Admission Diagnosis: COPD Open Wound/Cellutlitis/Pressure Ulcers: No Acute Fx/ORIF/Change in wt bearing status: No Severe MUSCULOSKELETAL pain: Yes ADL Dysfunction: Yes Acute CVA w/Hemiparesis/Hemiplegia: No Decreased Functional Mobility/Strength: Yes Sprain/Strain: No Acute Post-op Mobility Dysfunction: No Total Points: 9 PT Screen per Nursing Assess ONCE Comment: Protocol Order Physician Instructions: Greater than 3 points order PT Admission Screenin Reason For Exam: Triggered on Admission Diagnosis: COPD Open Wound/Cellutlitis/Pressure Ulcers: No Acute Fx/ORIF/Change in wt bearing status: No Severe MUSCULOSKELETAL pain: Yes ADL Dysfunction: Yes Acute CVA w/Hemiparesis/Hemiplegia: No Decreased Functional Mobility/Strength: Yes Sprain/Strain: No Acute Post-op Mobility Dysfunction: No Total Points: 9 RT Screen per Nursing Assess ONCE Comment: Protocol Order Physician Instructions: Greater than 3 points order RT Admission Screen Reason For Exam: Triggered on Admission Diagnosis: COPD Diagnosis: COPD Pneumonia: No Home O2: No Asthma: Yes CHF: No Home CPAP/BIPAP: No Home Nebs/MDI: Yes Total Points: 9 Discharge Exam General Appearance: no apparent distress, alert, obese Respiratory Exam: prolonged expirations, No wheezing Cardiovascular Exam: regular rate/rhythm, normal heart sounds Gastrointestinal/Abdomen Exam: soft, No tenderness, No mass Extremity Exam: normal inspection, normal range of motion Final Diagnosis/Problem List - Final Discharge Diagnosis/Problem (1) COPD with acute exacerbation Current Visit: Yes Status: Acute Assessment & Plan: home on po levaquin, prednisone and continue albuterol nebs. (2) Failure of outpatient treatment Current Visit: Yes Status: Acute (3) Diabetes Current Visit: No Status: Chronic (4) Chronic respiratory failure with hypoxia Current Visit: Yes Status: Acute Assessment & Plan: will qualify for home oxygen - Discharge Disposition: Home, Self-Care Condition: Stable Prescriptions: New Prednisone 20 mg [Deltasone 20 mg] 20 mg PO UD #18 tablet Albuterol/Ipratropium 3ml Neb* [DUONEB 0.5-3 MG/3 ml Neb] 3 ml IH Q4HRT # 100 ampul Nebulizer and Compressor [Easy Air Compressor Nebulizer] 1 each UD #1 each Levofloxacin [Levaquin] 500 mg PO DAILY #7 tablet Continue Simvastatin 40 mg [Zocor 40 mg] 40 mg PO HS Glipizide 5 mg [Glucotrol 5 MG] 5 mg PO DAILY Gabapentin 300 mg PO TID Aspirin 81 mg PO DAILY Omeprazole 20 MG [Prilosec 20 mg] 20 mg PO DAILY Losartan/Hydrochlorothiazide [Losartan-Hctz 100-25 mg Tab] 1 each PO DAILY Oxycodone / APAP 10/325 mg [Oxycodone-Acetaminophen 10-325] 1 tab PO Q4H PRN PRN #30 tablet MDD 6 PRN Reason: Pain Cyclobenzaprine HCl 10 mg [Cyclobenzaprine 10 MG] 10 mg PO TID PRN PRN tablet PRN Reason: Muscle Spasms Citalopram Hydrobromide 20 mg* [ceLEXa 20 MG] 20 mg PO DAILY Ondansetron ODT 4 MG [Zofran Odt 4 mg] 1 tablet Q4HPRN PRN PRN Reason: Nausea Loratadine 10 mg [Claritin 10 mg] 1 tablet PO DAILY Guaifen/Dextromethorphan/PE [Robitussin Cough-Cold Cf Liq] 118 ml PO BID PRN Follow up with: JAVED ELLSWORTH MD [Primary Care Provider] - 1 Week
[2017-11-14] MEDS: Protonix 40MG Tablet PO SCH (09:46)
[2017-11-14] MEDS: NEURONTIN 300 MG PO SCH (09:46)
[2017-11-14] MEDS: ECOTRIN 81 MG PO SCH (09:46)
[2017-11-14] MEDS: Mucinex 600MG ER Tabs PO SCH (09:46)
[2017-11-14] MEDS: LEVOFLOXACIN 750MG/150ML D5W 750 MG/150 ML BAG IV SCH (09:47)
[2017-11-14 11:04] VITALS: O2SAT 95
[2017-11-14 11:35] VITALS: BP 126/60; PULSE 87
== END 2017-11-14 13:30 | disposition home or self-care (01) | DRG 191 ==
LOC: MED SURG 14:55
PROVIDERS: ADMIT Family Medicine; ATTEND Family Medicine
DX: J44.1 Chronic obstructive pulmonary disease with (acute) exacerbation (principal); J96.11 Chronic respiratory failure with hypoxia; Z78.9 Other specified health status; E11.9 Type 2 diabetes mellitus without complications; I10 Essential (primary) hypertension
CPT/HCPCS: 36415; 71046; 80048; 80053; 82962; 83735; 85025; 87040; 87070; 94150; 94640; 94760; J0456; J0696; J1650; J1956; J2405; J2930; A9270-GY

== ENCOUNTER 2017-12-12 16:56 | Inpatient (IN) | payer MEDICARE ==
[2017-12-12] MEDS ORDERED: solu-MEDROL 125 MG IV ONE (17:15)
[2017-12-12] MEDS ORDERED: DUONEB 0.5-3 MG/3 ml Neb IH ONE ×2 (17:15→17:30)
[2017-12-12] MEDS ORDERED: solu-MEDROL 125 MG ONE (17:25)
[2017-12-12 17:37] LABS: Lactic Acid 2.1 (0.4-2.0); VBG BASE EXCESS 2.9 (-2.0-2.0); VBG CARBOXYHEMOGLOBIN 2.8 % T HGB (0.0-6.9); VBG HCO3- 24.2 meq/L (22-28); VBG HEMOGLOBIN 12.9; VBG O2 SATURATION 97.5 (95-100); VBG PCO2 27 mm/Hg (42-55); VBG PO2 68 mm/Hg (25-40); VBG POTASSIUM 3.5 (3.5-5.1)
[2017-12-12 17:38] LABS: VBG pH 7.56 (7.32-7.42)
[2017-12-12 18:13] LABS: BASOPHIL % 0.5 % (0.0-0.4); Basophil (Absolute #) 0.03 (0-0.4); Eosinophil % 3.3 % (0.00-5.0); Eosinophil (Absolute #) 0.21 (0-0.5); Granulocyte Absolute (ANC) 3.94 (1.4-6.9); Granulocytes % 62.9 % (36.0-66.0); Hematocrit 37.3 % (35-47); Hemoglobin 12.5 gm/dl (12.0-16.0); Lymphocytes % 20.7 % (24.0-44.0); Mean Cell Volume 95.6 fl (78-100); Mean Corpuscular Hgb Concent. 33.5 g/dl (32-36); Mean Platelet Volume 10.6 fl (6-9.5); Monocyte (Absolute #) 0.79 (0.0-1.3); Monocytes % 12.6 % (0.0-12.0); Platelet Count 296 K/mm3 (150-450); Red Cell Distribution Width 13.4 % (11.5-14.0); White Blood Count 6.3 K/mm3 (4.0-10.5)
[2017-12-12 18:18] LABS: ALKALINE PHOSPHATASE 67 U/L (38-126); ANION GAP 18.5 MEQ/L (5-15); BLOOD UREA NITROGEN 22 mg/dL (7-17); CHLORIDE 104 mmol/L (98-107); Calcium 9.8 mg/dL (8.4-10.2); Carbon Dioxide 23 mmol/L (22-30); Creatinine 1 0.94 mg/dL (0.52-1.04); Glucose 124 mg/dL (74-106); Potassium 3.7 mmol/L (3.5-5.1); SGOT/AST 20 U/L (14-36); SGPT/ALT 22 U/L (0-35); SODIUM 142 mmol/L (137-145); Total Protein 6.5 g/dL (6.3-8.2)
[2017-12-12 18:26] LABS: INFLUENZA A NEGATIVE (NEGATIVE); INFLUENZA B NEGATIVE (NEGATIVE); RESPIRATORY SYNCTIAL VIRUS NEGATIVE (Negative)
[2017-12-12] MEDS ORDERED: BENADRYL 50 MG/ML IV ONE (18:26)
[2017-12-12] MEDS ORDERED: SUBLIMAZE 100 MCG/2 ML IV ONE (18:26)
[2017-12-12 18:27] LABS: NT PRO BNP 90.3 pg/mL (0-1800)
[2017-12-12] MEDS ORDERED: SUBLIMAZE 100 MCG/2 ML ONE (18:52)
[2017-12-12] MEDS ORDERED: BENADRYL 50 MG/ML ONE (18:52)
[2017-12-12] MEDS ORDERED: PROVENTIL 2.5 MG/3 ML NEB IH ONE ×2 (19:09→19:13)
[2017-12-12] MEDS ORDERED: Magnesium 1 Gm / 100 Ml D5W*** 200 ML IV ONE (19:23)
[2017-12-12] MEDS: Magnesium 1 Gm / 100 Ml D5W*** 100 ML IV SCH ×2 (19:24→20:50)
--- NOTE | 2017-12-12 19:54 | ERPHSYRPT ---
- History of Present Illness Time Seen by Provider: 12/12/17 17:06 Source: patient, family Patient Subjective Stated Complaint: Pt states "I cannot breath. My legs hurt really bad." Triage Nursing Assessment: Pt alert and oriented X 3, skin pwd. Pt ambulates slowly with a limp. pt tachypniec, raspy voice, intermittant cough, audible rhales, thick yellow phlegm. Physician History: CC: diff breathing Hx: 77 y/o patient of Dr Ellsworth. She has had intermittent coughing and wheezing and diff breathing since September. Lives at home with family. No one else is ill. She has been in the hospital twice and went to rehab for a time. Was recently seen and given alb MDI. She has nebs at home. Has been treated with abtx. She has hx of COPD. No hx of heart disease. No hx of thromboembolic disease. She quit smoking 20 years ago. She has dogs at home. Severity of Dyspnea-Max: severe Severity of Dyspnea-Current: moderate Allergies/Adverse Reactions: codeine Allergy (Verified 09/26/17 07:44) Sulfa (Sulfonamide Antibiotics) Allergy (Verified 09/26/17 07:44) Home Medications: Aspirin 81 mg PO DAILY 03/05/15 [History] Gabapentin 300 mg PO TID 03/05/15 [History] Glipizide 5 mg [Glucotrol 5 MG] 5 mg PO DAILY 03/05/15 [History] Losartan/Hydrochlorothiazide [Losartan-Hctz 100-25 mg Tab] 1 each PO DAILY 03/05 [History] Omeprazole 20 MG [Prilosec 20 mg] 20 mg PO DAILY 03/05/15 [History] Simvastatin 40 mg [Zocor 40 mg] 40 mg PO HS 03/05/15 [History] Loratadine 10 mg [Claritin 10 mg] 1 tablet PO DAILY 11/08/17 [History] Hx Tetanus, Diphtheria Vaccination/Date Given: Yes Hx Influenza Vaccination/Date Given: Yes Hx Pneumococcal Vaccination/Date Given: Yes Immunizations Up to Date: Yes - Review of Systems Constitutional: Fatigue, Malaise, Weakness, No Fever, No Chills Eyes: No Symptoms Ears, Nose, & Throat: No Symptoms Respiratory: Cough, Dyspnea, Wheezing Cardiac: No Chest Pain Abdominal/Gastrointestinal: No Abdominal Pain, No Nausea, No Vomiting Skin: No Rash Neurological: No Headache All Other Systems: Reviewed and Negative - Past Medical History Pertinent Past Medical History: Yes Neurological History: No Pertinent History ENT History: Cataracts Cardiac History: High Cholesterol, Hypertension Respiratory History: Asthma, COPD Endocrine Medical History: Diabetes Type II Musculoskeletal History: Fractures, Other GI Medical History: GERD History: No Pertinent History Psycho-Social History: Anxiety Female Reproductive Disorders: No Pertinent History Other Medical History: neuropathy - Past Surgical History Past Surgical History: Yes Neuro Surgical History: No Pertinent History Cardiac: No Pertinent History Respiratory: No Pertinent History Gastrointestinal: No Pertinent History Genitourinary: No Pertinent History Musculoskeletal: Orthopedic Surgery Female Surgical History: No Pertinent History Other Surgical History: R ARM, BACK, R hand surgery - Social History Smoking Status: Former smoker Exposure to second hand smoke: No Drug Use: none Patient Lives Alone: No - Nursing Vital Signs Nursing Vital Signs: Initial Vital Signs Temperature 99.4 F 12/12/17 17:13 Pulse Rate 118 H 12/12/17 17:13 Respiratory Rate 22 12/12/17 17:13 Blood Pressure 120/90 12/12/17 17:13 O2 Sat by Pulse Oximetry 95 12/12/17 17:13 Pain Scale Pain Intensity 6 - Physical Exam General Appearance: alert, other (dyspneic and wheezing on arrival) Eye Exam: PERRL/EOMI Respiratory Exam: respiratory distress, wheezing Cardiovascular/Chest Exam: regular rate/rhythm Abdominal/Gastrointestinal Exam: soft, No tenderness, No distention Extremity Exam: non-tender, normal range of motion, no calf tenderness Neurologic Exam: alert, oriented x 3, cooperative, sensation nml, No motor deficits Skin Exam: warm, dry, No rash SpO2 Interpretation: normal SpO2: 95 Oxygen Delivery: Room Air - Course Nursing assessment & vital signs reviewed: Yes EKG Interpreted by Me: RATE (106), Sinus Tach, NORMAL AXIS, NORMAL INTERVALS ( QTc 442), Q-wave (inferior), NORMAL ST-T - Radiology Exams cxr X-ray Interpretation: Reviewed by me, Negative Ordered Tests: Active Orders 24 hr Category Date Time Status Controller Instructor STAT Care 12/12/17 17:15 Active EKG-ER Only STAT Care 12/12/17 17:15 Active IV Insertion STAT Care 12/12/17 17:15 Active Oxygen-ED Only NASAL CANNULA 2 lpm Care 12/12/17 17:15 Active Pulse Oximetry (ED) STAT Care 12/12/17 17:15 Active CHEST 1 VIEW (PORTABLE) Stat Exams 12/12/17 17:15 Taken CHEST WITH CONTRAST [CT] Stat Exams 12/12/17 19:08 Taken BLOOD CULTURE Stat Lab 12/12/17 17:33 Received CBC W DIFF Stat Lab 12/12/17 17:23 Completed CMP Stat Lab 12/12/17 17:33 Completed D-DIMER QUANTITATION Stat Lab 12/12/17 17:23 Completed Lactic Acid Stat Lab 12/12/17 17:15 Completed Lactic Acid Stat Lab 12/12/17 19:37 Ordered MAGNESIUM Stat Lab 12/12/17 17:33 Completed NT PRO BNP Stat Lab 12/12/17 17:33 Completed TROPONIN Stat Lab 12/12/17 17:23 Completed VENOUS BLOOD GAS Stat Lab 12/12/17 17:15 Completed Respiratory Nebulizer STAT RT 12/12/17 17:16 Completed Respiratory Nebulizer STAT RT 12/12/17 19:09 Completed Medication Summary Generic Name Dose Route Start Last Admin Trade Name Freq PRN Reason Stop Dose Admin Enoxaparin Sodium 100 mg 12/12/17 20:30 Enoxaparin Sodium 1 mg/kg (100 mg) 01/11/18 20:29 SQ Q12H SHAUN Magnesium Sulfate/Dextrose 100 mls @ 100 mls/hr 12/12/17 19:15 12/12/17 19:24 Magnesium 1 Gm / 100 Ml D5w IV 12/12/17 21:14 100 mls/hr Q1H SHAUN Administration Levofloxacin/Dextrose 750 mg in 150 mls @ 100 mls/hr 12/12/17 19:59 Levofloxacin 750mg/150ml D5w IV 12/12/17 21:28 STAT STA Discontinued Medications Generic Name Dose Route Start Last Admin Trade Name Freq PRN Reason Stop Dose Admin Albuterol Sulfate 2.5 mg 12/12/17 19:09 12/12/17 19:15 Proventil 2.5 Mg/3 Ml Neb IH 12/12/17 19:10 2.5 mg STAT ONE Administration Albuterol Sulfate Confirm 12/12/17 19:13 Proventil 2.5 Mg/3 Ml Neb Administered 12/12/17 19:14 Dose 2.5 mg IH .STK-MED ONE Albuterol/Ipratropium 3 ml 12/12/17 17:15 12/12/17 17:30 Duoneb 0.5-3 Mg/3 Ml Neb IH 12/12/17 17:16 3 ml STAT ONE Administration Albuterol/Ipratropium Confirm 12/12/17 17:30 Duoneb 0.5-3 Mg/3 Ml Neb Administered 12/12/17 17:31 Dose 3 ml IH .STK-MED ONE Diphenhydramine HCl 25 mg 12/12/17 18:26 12/12/17 18:53 Benadryl 50 Mg/Ml IV 12/12/17 18:27 25 mg STAT ONE Administration Diphenhydramine HCl Confirm 12/12/17 18:52 Benadryl 50 Mg/Ml Administered 12/12/17 18:53 Dose 50 mg .ROUTE .STK-MED ONE Fentanyl Citrate 50 mcg 12/12/17 18:26 12/12/17 18:53 Sublimaze 100 Mcg/2 Ml IV 12/12/17 18:27 50 mcg STAT ONE Administration Fentanyl Citrate Confirm 12/12/17 18:52 Sublimaze 100 Mcg/2 Ml Administered 12/12/17 18:53 Dose 100 mcg .ROUTE .STK-MED ONE Methylprednisolone Sodium Succinate 125 mg 12/12/17 17:15 12/12/17 17:29 Solu-Medrol 125 Mg IV 12/12/17 17:16 125 mg STAT ONE Administration Methylprednisolone Sodium Succinate Confirm 12/12/17 17:25 Solu-Medrol 125 Mg Administered 12/12/17 17:26 Dose 125 mg .ROUTE .STK-MED ONE Lab/Rad Data: Laboratory Result Diagrams 12/12/17 17:23 12/12/17 17:33 Laboratory Results 12/12/17 12/12/17 12/12/17 Range/Units 17:33 17:33 17:23 WBC (4.0-10.5) K/mm3 RBC (4.1-5.4) M/mm3 Hgb (12.0-16.0) gm/dl Hct (35-47) % MCV (78-100) fl MCH (26-32) pg MCHC (32-36) g/dl RDW (11.5-14.0) % Plt Count (150-450) K/mm3 MPV (6-9.5) fl Gran % (36.0-66.0) % Eos # (Auto) (0-0.5) Absolute Lymphs (auto) (1.0-4.6) Absolute Monos (auto) (0.0-1.3) Lymphocytes % (24.0-44.0) % Monocytes % (0.0-12.0) % Eosinophils % (0.00-5.0) % Basophils % (0.0-0.4) % Absolute Granulocytes (1.4-6.9) Basophils # (0-0.4) D-Dimer (215-500) ng/mL pO2/FiO2 Ratio % VBG pH (7.32-7.42) VBG pCO2 at Pat Temp (42-55) mm/Hg VBG pO2 at Pat Temp (25-40) mm/Hg VBG HCO3 (22-28) meq/L VBG O2 Sat (Kevin) (95-100) VBG Base Excess (-2.0-2.0) VBG Hemoglobin VBG Carboxyhemoglobin (0.0-6.9) % T HGB POC Potassium (3.5-5.1) Sodium 142 (137-145) mmol/L Potassium 3.7 (3.5-5.1) mmol/L Chloride 104 (98-107) mmol/L Carbon Dioxide 23 (22-30) mmol/L Anion Gap 18.5 H (5-15) MEQ/L BUN 22 H (7-17) mg/dL Creatinine 0.94 (0.52-1.04) mg/dL Estimated GFR > 60.0 ML/MIN Glucose 124 H (74-106) mg/dL Lactic Acid (0.4-2.0) Calcium 9.8 (8.4-10.2) mg/dL Magnesium 1.4 L (1.6-2.3) mg/dL Total Bilirubin 0.50 (0.2-1.3) mg/dL AST 20 (14-36) U/L ALT 22 (0-35) U/L Alkaline Phosphatase 67 (38-126) U/L Troponin I < 0.012 (0.000-0.034) ng/mL NT-Pro-B Natriuret Pep 90.3 (0-1800) pg/mL Serum Total Protein 6.5 (6.3-8.2) g/dL Albumin 4.0 (3.5-5.0) g/dL Influenza Type A Ag NEGATIVE (NEGATIVE) Influenza Type B Ag NEGATIVE (NEGATIVE) RSV (PCR) NEGATIVE (Negative) 12/12/17 12/12/17 12/12/17 Range/Units 17:23 17:23 17:15 WBC 6.3 (4.0-10.5) K/mm3 RBC 3.90 L (4.1-5.4) M/mm3 Hgb 12.5 (12.0-16.0) gm/dl Hct 37.3 (35-47) % MCV 95.6 (78-100) fl MCH 32.0 (26-32) pg MCHC 33.5 (32-36) g/dl RDW 13.4 (11.5-14.0) % Plt Count 296 (150-450) K/mm3 MPV 10.6 H (6-9.5) fl Gran % 62.9 (36.0-66.0) % Eos # (Auto) 0.21 (0-0.5) Absolute Lymphs (auto) 1.30 (1.0-4.6) Absolute Monos (auto) 0.79 (0.0-1.3) Lymphocytes % 20.7 L (24.0-44.0) % Monocytes % 12.6 H (0.0-12.0) % Eosinophils % 3.3 (0.00-5.0) % Basophils % 0.5 (0.0-0.4) % Absolute Granulocytes 3.94 (1.4-6.9) Basophils # 0.03 (0-0.4) D-Dimer 4338.59 H* (215-500) ng/mL pO2/FiO2 Ratio 21.0 % VBG pH 7.56 H* (7.32-7.42) VBG pCO2 at Pat Temp 27 L (42-55) mm/Hg VBG pO2 at Pat Temp 68 H (25-40) mm/Hg VBG HCO3 24.2 (22-28) meq/L VBG O2 Sat (Kevin) 97.5 (95-100) VBG Base Excess 2.9 H (-2.0-2.0) VBG Hemoglobin 12.9 VBG Carboxyhemoglobin 2.8 (0.0-6.9) % T HGB POC Potassium 3.5 (3.5-5.1) Sodium (137-145) mmol/L Potassium (3.5-5.1) mmol/L Chloride (98-107) mmol/L Carbon Dioxide (22-30) mmol/L Anion Gap (5-15) MEQ/L BUN (7-17) mg/dL Creatinine (0.52-1.04) mg/dL Estimated GFR ML/MIN Glucose (74-106) mg/dL Lactic Acid 2.1 H (0.4-2.0) Calcium (8.4-10.2) mg/dL Magnesium (1.6-2.3) mg/dL Total Bilirubin (0.2-1.3) mg/dL AST (14-36) U/L ALT (0-35) U/L Alkaline Phosphatase (38-126) U/L Troponin I (0.000-0.034) ng/mL NT-Pro-B Natriuret Pep (0-1800) pg/mL Serum Total Protein (6.3-8.2) g/dL Albumin (3.5-5.0) g/dL Influenza Type A Ag (NEGATIVE) Influenza Type B Ag (NEGATIVE) RSV (PCR) (Negative) - Progress Progress Note: 12/12/17 19:55 She has a lot of legs cramps. Mag low so will supplement. Lots better after benadryl and fentany and nebs and steroids. She smells of animal feces and likely has some allergy component to her breathing issues. Will get CTA to rule out PE. 12/12/17 20:41 CTA chest: harjinder 8:39 PM 12/12/2017: No comps. Tiny nonoccluding PE's in segmental branches of RLL. No pulmonary infarct. Healing R 10th rib fx & T12 kyphoplasty. 12/12/17 20:[address] Kemp for Stephan. Will admit to IP Tele. Will see patient in: hospital (observation) Counseled pt/family regarding: lab results, diagnosis, need for follow-up, rad results - Departure Time of Disposition: 20:46 Departure Disposition: In-patient Admission Clinical Impression: COPD with acute exacerbation Pulmonary embolus Qualifiers: Pulmonary embolism type: other Chronicity: acute Acute cor pulmonale presence: without acute cor pulmonale Qualified Code(s): I26.99 - Other pulmonary embolism without acute cor pulmonale Condition: Fair Critical Care Time: No Referrals: JAVED ELLSWORTH MD [Primary Care Provider] - Instructions: Chronic Obstructive Pulmonary Disease
[2017-12-12] MEDS ORDERED: LEVOFLOXACIN 750MG/150ML D5W 750 MG/150 ML BAG IV STA (19:59)
[2017-12-12] MEDS ORDERED: ENOXAPARIN SODIUM SQ SCH (20:30)
[2017-12-12] MEDS ORDERED: LEVOFLOXACIN 750MG/150ML D5W 750 MG/150 ML BAG IV ONE (21:03)
[2017-12-12 21:26] LABS: Lactic Acid 2.5 (0.4-2.0)
[2017-12-12] MEDS ORDERED: TYLENOL 325 MG PO PRN (21:45)
[2017-12-12] MEDS: DUONEB 0.5-3 MG/3 ml Neb IH PRN (23:12)
[2017-12-12] MEDS: SODIUM CHLORIDE 0.45% W/ 20 mEq KCL 1,000 ML IV SCH (23:26)
[2017-12-12] MEDS: solu-MEDROL 125 MG IV SCH (23:27)
[2017-12-12] MEDS: Pepcid 20 MG VIAL IV SCH (23:27)
[2017-12-12] MEDS: NovoLOG Insulin SQ PRN (23:28)
[2017-12-12] MEDS ORDERED: ZOCOR 20MG PO ONE (23:46)
[2017-12-12] MEDS ORDERED: NEURONTIN 300 MG PO ONE (23:46)
[2017-12-13] MEDS ORDERED: Zofran 4 MG/2 ML VIAL IV PRN (01:47)
[2017-12-13] MEDS ORDERED: FENTANYL 500 MCG/10 ML VIAL IV PRN (01:48)
[2017-12-13] MEDS ORDERED: SUBLIMAZE 100 MCG/2 ML ONE (01:58)
[2017-12-13] MEDS: SUBLIMAZE 100 MCG/2 ML IV PRN ×4 (02:05→10:53)
[2017-12-13] MEDS: solu-MEDROL 125 MG IV SCH ×4 (04:50→23:25)
[2017-12-13] MEDS: DUONEB 0.5-3 MG/3 ml Neb IH SCH ×4 (06:34→19:16)
[2017-12-13] MEDS: NovoLOG Insulin SQ PRN ×4 (08:16→23:26)
--- NOTE | 2017-12-13 08:46 | XRAY ---
Indication: Difficulty breathing. Tachypnea. Elevated d-dimer. Multiple contiguous axial images obtained through the chest using 80 cc Isovue 370 contrast and PE protocol. Comparison: None There is satisfactory opacification of the pulmonary arteries. Nonoccluding pulmonary emboli seen in the distal right lower lobe branch and more distal segmental branches. Heart is not enlarged. Aorta mildly arteriosclerotic without aneurysm/dissection. No pathologic mediastinal/hilar lymphadenopathy. Examination of the lung parenchyma hyperinflated with minimal bilateral dependent atelectasis. No suspicious pulmonary mass, infiltrate, or effusion. Bony thorax demonstrates minimal degenerative changes throughout the spine, healing right 10th rib fracture, and previous T12 kyphoplasty. Limited upper abdomen is unremarkable. Impression: Nonoccluding right lower lobe pulmonary emboli. No distal infarct. CT DI 23.20
--- NOTE | 2017-12-13 08:47 | PCM.HP ---
History of Present Illness - Chief Complaint Chief Complaint: shortness of breath History of Present Illness: is a 77 year old female who presented to the ER with cough and shortness of breath. She has a history of COPD, has had multiple hospitalizations. Apparently doesn't have a mask for her nebulizer at home at this time so hasn't been doing treatments. She also complains of pain in the legs, no chest pain. no fever. - Review of Systems Constitutional: No Fever, No Chills Respiratory: Cough, Short Of Breath, Wheezing Cardiac: No Chest Pain, No Edema, No Syncope Abdominal/Gastrointestinal: No Abdominal Pain, No Nausea, No Vomiting, No Diarrhea Genitourinary Symptoms: No Dysuria Skin: No Rash All Other Systems: Reviewed and Negative Medications & Allergies Home Medications: Home Medication List Aspirin 81 mg PO DAILY 03/05/15 [History Confirmed 12/12/17] Gabapentin 300 mg PO TID 03/05/15 [History Confirmed 12/12/17] Glipizide 5 mg [Glucotrol 5 MG] 5 mg PO DAILY 03/05/15 [History Confirmed 12/12/17] Losartan/Hydrochlorothiazide [Losartan-Hctz 100-25 mg Tab] 1 each PO DAILY 03/05 [History Confirmed 12/12/17] Omeprazole 20 MG [Prilosec 20 mg] 20 mg PO DAILY 03/05/15 [History Confirmed 11/26] Simvastatin 40 mg [Zocor 40 mg] 40 mg PO HS 03/05/15 [History Confirmed 12/12/17 ] Loratadine 10 mg [Claritin 10 mg] 1 tablet PO DAILY 11/08/17 [History Confirmed 12/12/17] Albuterol/Ipratropium 3ml Neb* [DUONEB 0.5-3 MG/3 ml Neb] 3 ml IH Q4HRT #100 ampul 11/14/17 [Rx Confirmed 12/12/17] Nebulizer and Compressor [Easy Air Compressor Nebulizer] 1 each UD #1 each [Rx Confirmed 12/12/17] Allergies/Adverse Reactions: Allergies Allergy/AdvReac Type Severity Reaction Status Date / Time codeine Allergy Verified 09/26/17 07:44 Sulfa (Sulfonamide Allergy Verified 09/26/17 07:44 Antibiotics) - Past Medical History Past Medical History: Yes Neurological History: No Pertinent History ENT History: Cataracts Cardiac History: High Cholesterol, Hypertension Respiratory History: Asthma, COPD Endocrine Medical History: Diabetes Type II Musculoskelatal History: Fractures, Other GI Medical History: GERD History: No Pertinent History Pyscho-Social History: Anxiety Reproductive Disorders: No Pertinent History Comment: neuropathy - Female History Are you now?: No - Past Surgical History Past Surgical History: Yes Neuro Surgical History: No Pertinent History Cardiac History: No Pertinent History Respiratory Surgery: No Pertinent History GI Surgical History: No Pertinent History Genitourinary Surgical Hx: No Pertinent History Musculskeletal Surgical Hx: Orthopedic Surgery Female Surgical History: No Pertinent History Other Surgical History: R ARM, BACK, R hand surgery - Social History Smoking Status: Former smoker Exposure to second hand smoke: Yes Alcohol: None Drug Use: none - Physical Exam Vital Signs: Vital Signs - 24 hr Temp Pulse Resp BP Pulse Ox 12/13/17 07:24 98 F 88 20 140/70 96 12/13/17 06:36 90 20 95 12/13/17 04:00 98.0 F 97 H 17 147/68 94 L 12/13/17 00:00 98.1 F 102 H 20 134/64 95 12/12/17 23:15 99 H 20 95 12/12/17 22:04 98.2 F 124 H 22 122/69 96 12/12/17 21:07 106 H 20 129/68 95 12/12/17 20:46 95 12/12/17 20:20 102 H 96 H 135/54 94 L 12/12/17 19:17 98 H 23 95 12/12/17 17:30 109 H 26 H 97 12/12/17 17:15 96 12/12/17 17:13 99.4 F 118 H 24 120/90 95 General Appearance: no apparent distress, alert Eye Exam: PERRL/EOMI, eyes nml inspection Respiratory Exam: rhonchi, wheezing Cardiovascular Exam: regular rate/rhythm, normal heart sounds, normal peripheral pulses Gastrointestinal/Abdomen Exam: soft, normal bowel sounds, No tenderness, No mass Extremity Exam: normal inspection, normal range of motion, pelvis stable Skin Exam: normal color, warm, dry, No rash Results - Labs Lab/Micro Results: Accuchecks Date 12/12/17 Time 22:45 Accucheck Value: 216 Accucheck Value: 252 Lab Results-Last 24 Hours 12/13/17 12/13/17 Range/Units 05:20 05:25 Lactic Acid 1.8 (0.4-2.0) Magnesium 2.0 (1.6-2.3) mg/dL Accuchecks Date 12/12/17 Time 22:45 Accucheck Value: 216 Accucheck Value: 252 - Other Procedures and Tests Respiratory Therapy 12/12/17 23:14 Respiratory Nebulizer 12/13/17 07:00 neb [Respiratory Nebulizer] QID Assessment/Plan (1) COPD with acute exacerbation Current Visit: Yes Status: Acute Assessment & Plan: continue Levaquin, nebs and IV steroids, appears to have some compliance issues and social struggles since nebulizer mask unavailable Code(s): J44.1 - CHRONIC OBSTRUCTIVE PULMONARY DISEASE W (ACUTE) EXACERBATION (2) Pulmonary embolus Current Visit: Yes Status: Acute Qualifiers: Pulmonary embolism type: other Chronicity: acute Acute cor pulmonale presence: without acute cor pulmonale Qualified Code(s): I26.99 - Other pulmonary embolism without acute cor pulmonale Assessment & Plan: non occluding, on Lovenox at this time. will likely start xarelto on discharge. Code(s): I26.99 - OTHER PULMONARY EMBOLISM WITHOUT ACUTE COR PULMONALE (3) Diabetes Current Visit: No Status: Chronic Qualifiers: Diabetes mellitus type: type 2 Assessment & Plan: cover with SSI while on IV solu medrol Code(s): E11.9 - TYPE 2 DIABETES MELLITUS WITHOUT COMPLICATIONS
--- NOTE | 2017-12-13 08:48 | XRAY ---
Indication: Cough. Comparison: November 11, 2017. Portable chest remains clear. Heart and mediastinal structures within normal limits for AP portable technique. No new/acute findings.
[2017-12-13] MEDS ORDERED: LEVOFLOXACIN 750MG/150ML D5W 750 MG/150 ML BAG IV SCH (10:00)
[2017-12-13] MEDS ORDERED: BABY ASPIRIN 81 MG CHEW PO SCH (10:00)
[2017-12-13] MEDS ORDERED: NON-FORMULARY ITEM (Losartan/Hydrochlorothiazide [Losartan-Hctz 100-25 Mg Tab] 1 EACH) PO SCH (10:00)
[2017-12-13] MEDS: hydroDIURIL 25 MG PO SCH (10:34)
[2017-12-13] MEDS: NEURONTIN 300 MG PO SCH ×3 (10:34→22:25)
[2017-12-13] MEDS: Pepcid 20 MG VIAL IV SCH ×2 (10:34→22:25)
[2017-12-13] MEDS: Protonix 40MG Tablet PO SCH (10:34)
[2017-12-13] MEDS: Cozaar 50 MG PO SCH (10:35)
[2017-12-13] MEDS: ECOTRIN 81 MG PO SCH (10:36)
[2017-12-13] MEDS: CLARITIN 10 MG PO SCH (10:38)
[2017-12-13] MEDS: ENOXAPARIN SODIUM SQ SCH ×2 (10:42→22:26)
[2017-12-13] MEDS: SODIUM CHLORIDE 0.45% W/ 20 mEq KCL 1,000 ML IV SCH ×2 (10:56→21:07)
[2017-12-13] MEDS: Glucotrol 5 MG PO SCH (12:00)
[2017-12-13] MEDS: Norco 10/325 MG Tablet PO PRN ×3 (12:09→23:25)
[2017-12-13] MEDS: ZOCOR 20MG PO SCH (22:26)
[2017-12-14 05:45] LABS: BASOPHIL % 0.1 % (0.0-0.4); Basophil (Absolute #) 0.01 (0-0.4); Eosinophil (Absolute #) 0 (0-0.5); Granulocyte Absolute (ANC) 9.21 (1.4-6.9); Hematocrit 36.2 % (35-47); Hemoglobin 12.3 gm/dl (12.0-16.0); Lymphocyte (Absolute #) 0.79 (1.0-4.6); Lymphocytes % 7.6 % (24.0-44.0); Mean Cell Volume 97.3 fl (78-100); Mean Platelet Volume 10.7 fl (6-9.5); Monocyte (Absolute #) 0.45 (0.0-1.3); Monocytes % 4.3 % (0.0-12.0); Platelet Count 282 K/mm3 (150-450); Red Blood Count 3.72 M/mm3 (4.1-5.4); Red Cell Distribution Width 13.5 % (11.5-14.0); White Blood Count 10.5 K/mm3 (4.0-10.5)
[2017-12-14] MEDS: solu-MEDROL 125 MG IV SCH ×5 (05:53→23:22)
[2017-12-14 05:59] LABS: ALBUMIN 3.8 g/dL (3.5-5.0); ALKALINE PHOSPHATASE 66 U/L (38-126); ANION GAP 13.2 MEQ/L (5-15); BLOOD UREA NITROGEN 25 mg/dL (7-17); CHLORIDE 101 mmol/L (98-107); Calcium 9.6 mg/dL (8.4-10.2); Carbon Dioxide 27 mmol/L (22-30); Creatinine 1 0.92 mg/dL (0.52-1.04); Glucose 224 mg/dL (74-106); Potassium 4.9 mmol/L (3.5-5.1); SGOT/AST 20 U/L (14-36); SGPT/ALT 21 U/L (0-35); SODIUM 137 mmol/L (137-145); Total Protein 6.1 g/dL (6.3-8.2)
--- NOTE | 2017-12-14 08:26 | PCM.NOTE ---
Date and Time: 12/14/17824 Subjective Assessment: patient observed eating breakfast comfortably then when I entered room she began to force exp wheeze and cough. states she is feeling some better but still has significant pain in upper legs. Objective Exam General Appearance: no apparent distress, alert, obese Skin Exam: normal color, warm, dry Respiratory Exam: prolonged expirations, wheezing Cardiovascular Exam: regular rate/rhythm, normal heart sounds Gastrointestinal/Abdomen Exam: soft, No tenderness, No mass Extremity Exam: normal inspection, normal range of motion OBJECTIVE DATA Vital Signs: Vital Signs - 24 hr Temp Pulse Resp BP Pulse Ox 12/14/17 07:31 98 F 85 22 142/63 95 12/14/17 04:00 98.0 F 90 22 126/63 93 L 12/14/17 00:10 98.2 F 87 18 126/68 93 L 12/14/17 00:00 18 12/13/17 20:15 98.1 F 94 H 20 122/56 92 L 12/13/17 20:00 20 12/13/17 19:17 94 H 20 92 L 12/13/17 15:51 98 F 80 20 138/67 96 12/13/17 14:32 101 H 18 93 L 12/13/17 12:33 98.5 F 92 H 22 133/60 97 12/13/17 10:25 104 H 20 96 Pain Assessment - Last Documented Pain Intensity 0 Pain Scale Used 0-10 Pain Scale Intake and Output: Intake & Output 12/11/17 12/12/17 12/13/17 12/14/17 11:59 11:59 11:59 11:59 Intake Total 1180 3539 Output Total 300 Balance 880 3539 Weight 100.9 kg Lab Results: Accuchecks Date 12/13/17 Time 22:00 Accucheck Value: 171 Accucheck Value: 255 Accucheck Value: 200 Lab Results-Last 24 Hours 12/14/17 12/14/17 Range/Units 05:10 05:10 WBC 10.5 (4.0-10.5) K/mm3 RBC 3.72 L (4.1-5.4) M/mm3 Hgb 12.3 (12.0-16.0) gm/dl Hct 36.2 (35-47) % MCV 97.3 (78-100) fl MCH 33.0 H (26-32) pg MCHC 34.0 (32-36) g/dl RDW 13.5 (11.5-14.0) % Plt Count 282 (150-450) K/mm3 MPV 10.7 H (6-9.5) fl Gran % 88.0 H (36.0-66.0) % Eos # (Auto) 0 (0-0.5) Absolute Lymphs (auto) 0.79 L (1.0-4.6) Absolute Monos (auto) 0.45 (0.0-1.3) Lymphocytes % 7.6 L (24.0-44.0) % Monocytes % 4.3 (0.0-12.0) % Eosinophils % 0.0 (0.00-5.0) % Basophils % 0.1 (0.0-0.4) % Absolute Granulocytes 9.21 H (1.4-6.9) Basophils # 0.01 (0-0.4) Sodium 137 (137-145) mmol/L Potassium 4.9 (3.5-5.1) mmol/L Chloride 101 (98-107) mmol/L Carbon Dioxide 27 (22-30) mmol/L Anion Gap 13.2 (5-15) MEQ/L BUN 25 H (7-17) mg/dL Creatinine 0.92 (0.52-1.04) mg/dL Estimated GFR > 60.0 ML/MIN Glucose 224 H (74-106) mg/dL Calcium 9.6 (8.4-10.2) mg/dL Magnesium 1.9 (1.6-2.3) mg/dL Total Bilirubin 0.40 (0.2-1.3) mg/dL AST 20 (14-36) U/L ALT 21 (0-35) U/L Alkaline Phosphatase 66 (38-126) U/L Serum Total Protein 6.1 L (6.3-8.2) g/dL Albumin 3.8 (3.5-5.0) g/dL Assessment/Plan (1) COPD with acute exacerbation Current Visit: Yes Status: Acute Onset Date: ~12/12/17 Assessment & Plan: continue current management at this time, improving. Code(s): J44.1 - CHRONIC OBSTRUCTIVE PULMONARY DISEASE W (ACUTE) EXACERBATION (2) Pulmonary embolus Current Visit: Yes Status: Acute Onset Date: ~12/12/17 Qualifiers: Pulmonary embolism type: other Chronicity: acute Acute cor pulmonale presence: without acute cor pulmonale Qualified Code(s): I26.99 - Other pulmonary embolism without acute cor pulmonale Code(s): I26.99 - OTHER PULMONARY EMBOLISM WITHOUT ACUTE COR PULMONALE (3) Diabetes Current Visit: No Status: Chronic Qualifiers: Diabetes mellitus type: type 2 Code(s): E11.9 - TYPE 2 DIABETES MELLITUS WITHOUT COMPLICATIONS
[2017-12-14] MEDS: DUONEB 0.5-3 MG/3 ml Neb IH SCH ×3 (08:28→19:26)
[2017-12-14] MEDS: Glucotrol 5 MG PO SCH (08:33)
[2017-12-14] MEDS: SODIUM CHLORIDE 0.45% W/ 20 mEq KCL 1,000 ML IV SCH ×2 (08:33→18:40)
[2017-12-14] MEDS: Norco 10/325 MG Tablet PO PRN ×2 (08:33→12:45)
[2017-12-14] MEDS: NovoLOG Insulin SQ PRN ×4 (08:33→22:59)
[2017-12-14] MEDS: CLARITIN 10 MG PO SCH (10:11)
[2017-12-14] MEDS: NEURONTIN 300 MG PO SCH ×3 (10:11→22:09)
[2017-12-14] MEDS: hydroDIURIL 25 MG PO SCH (10:11)
[2017-12-14] MEDS: Protonix 40MG Tablet PO SCH (10:11)
[2017-12-14] MEDS: ECOTRIN 81 MG PO SCH (10:11)
[2017-12-14] MEDS: ENOXAPARIN SODIUM SQ SCH ×2 (10:11→22:10)
[2017-12-14] MEDS: Cozaar 50 MG PO SCH (10:11)
[2017-12-14] MEDS: Pepcid 20 MG VIAL IV SCH ×2 (10:12→22:10)
[2017-12-14] MEDS ORDERED: LEVOFLOXACIN 750MG/150ML D5W 750 MG/150 ML BAG IV SCH (22:00)
[2017-12-14] MEDS: ZOCOR 20MG PO SCH (22:09)
[2017-12-15] MEDS: Norco 10/325 MG Tablet PO PRN ×4 (03:52→21:01)
[2017-12-15] MEDS: DUONEB 0.5-3 MG/3 ml Neb IH PRN (03:56)
[2017-12-15] MEDS: solu-MEDROL 125 MG IV SCH (05:52)
[2017-12-15 05:58] LABS: Granulocyte Absolute (ANC) 8.45 (1.4-6.9); Hematocrit 35.4 % (35-47); Hemoglobin 11.6 gm/dl (12.0-16.0); Mean Cell Volume 96.7 fl (78-100); Mean Corpuscular Hgb Concent. 32.8 g/dl (32-36); Mean Platelet Volume 10.7 fl (6-9.5); Platelet Count 274 K/mm3 (150-450); Red Blood Count 3.66 M/mm3 (4.1-5.4); Red Cell Distribution Width 13.3 % (11.5-14.0); White Blood Count 10.1 K/mm3 (4.0-10.5)
[2017-12-15 06:01] LABS: Mean Corpuscular Hemoglobin 31.6 pg (26-32)
[2017-12-15 06:07] LABS: ANION GAP 13.8 MEQ/L (5-15); BLOOD UREA NITROGEN 25 mg/dL (7-17); CHLORIDE 99 mmol/L (98-107); Calcium 9.4 mg/dL (8.4-10.2); Carbon Dioxide 28 mmol/L (22-30); Creatinine 1 0.87 mg/dL (0.52-1.04); Glucose 197 mg/dL (74-106); Potassium 4.3 mmol/L (3.5-5.1); SODIUM 136 mmol/L (137-145)
[2017-12-15] MEDS: SODIUM CHLORIDE 0.45% W/ 20 mEq KCL 1,000 ML IV SCH ×2 (06:44→16:36)
[2017-12-15 07:07] LABS: BAND 2 % (0.0-2.0); Lymphocytes 7 % (24-44); Monocyte 3 % (0.0-12.0); Neutrophils 88 % (36.0-66.0); Total Cells Counted 100
[2017-12-15 07:08] LABS: ANISOCYTOSIS 1+; Basophilic Stippling 1+; Platelet Estimate NORMAL (NORMAL); Polychromasia 1+
[2017-12-15] MEDS: DUONEB 0.5-3 MG/3 ml Neb IH SCH ×5 (07:15→19:04)
[2017-12-15] MEDS ORDERED: xanAX 0.5 MG PO PRN (08:25)
--- NOTE | 2017-12-15 08:27 | PCM.NOTE ---
Date and Time: 12/15/17823 Subjective Assessment: patient shaking and appears anxious, continues to force wheezing during exam Objective Exam General Appearance: obese Skin Exam: normal color, warm, dry Eye Exam: PERRL, EOMI, eyes nml inspection Respiratory Exam: wheezing Cardiovascular Exam: regular rate/rhythm, normal heart sounds Gastrointestinal/Abdomen Exam: soft, No tenderness, No mass OBJECTIVE DATA Vital Signs: Vital Signs - 24 hr Temp Pulse Resp BP Pulse Ox 12/15/17 04:48 80 24 97 12/15/17 04:00 98.3 F 92 H 26 H 142/84 96 12/15/17 00:00 98.0 F 82 24 124/58 94 L 12/14/17 23:59 22 12/14/17 20:00 97.8 F 76 22 129/58 95 12/14/17 19:28 76 22 95 12/14/17 16:00 97.3 F 85 18 133/69 95 12/14/17 15:42 16 12/14/17 14:08 103 H 16 95 12/14/17 12:00 20 12/14/17 11:30 98.6 F 92 H 20 131/58 94 L 12/14/17 08:28 94 H 18 97 Pain Assessment - Last Documented Pain Intensity 2 Pain Scale Used 0-10 Pain Scale Intake and Output: Intake & Output 12/12/17 12/13/17 12/14/17 12/15/17 11:59 11:59 11:59 11:59 Intake Total 1180 3539 1635 Output Total 300 Balance 880 3539 1635 Weight 100.9 kg Lab Results: Accuchecks Date 12/14/17 Date 12/14/17 Time 22:30 Time 11:30 Accucheck Value: 189 Accucheck Value: 200 Lab Results-Last 24 Hours 12/14/17 12/15/17 12/15/17 Range/Units 07:56 05:13 05:13 WBC 10.1 (4.0-10.5) K/mm3 RBC 3.66 L (4.1-5.4) M/mm3 Hgb 11.6 L (12.0-16.0) gm/dl Hct 35.4 (35-47) % MCV 96.7 (78-100) fl MCH 31.6 (26-32) pg MCHC 32.8 (32-36) g/dl RDW 13.3 (11.5-14.0) % Plt Count 274 (150-450) K/mm3 MPV 10.7 H (6-9.5) fl Absolute Granulocytes 8.45 H (1.4-6.9) Segmented Neutrophils 88 H (36.0-66.0) % Band Neutrophils 2 (0.0-2.0) % Lymphocytes (Manual) 7 L (24-44) % Monocytes (Manual) 3 (0.0-12.0) % Differential Comment ABNORMAL Platelet Estimate NORMAL (NORMAL) Polychromasia 1+ Basophilic Stippling 1+ Anisocytosis 1+ Sodium 136 L (137-145) mmol/L Potassium 4.3 (3.5-5.1) mmol/L Chloride 99 (98-107) mmol/L Carbon Dioxide 28 (22-30) mmol/L Anion Gap 13.8 (5-15) MEQ/L BUN 25 H (7-17) mg/dL Creatinine 0.87 (0.52-1.04) mg/dL Estimated GFR > 60.0 ML/MIN Glucose 197 H (74-106) mg/dL Hemoglobin A1c 6.20 H (4.5-6.0) % Calcium 9.4 (8.4-10.2) mg/dL Multi-Disciplinary Progress Notes: Multi-Disciplinary Progress Notes 12/14/17 14:57 Case Management Note by Millie Ferguson LEVEL I WEB APPROVED, NO LEVEL II REQUIRED, FAXED TO [employer] AND PLACED IN PAPER CHART. Initialized on 12/14/17 14:57 - END OF NOTE 12/14/17 14:02 Case Management Note by Dasia Maciel AGAIN, ATTEMPTED TO REACH DORIS MANZANARES, SON AND LAY CAREGIVER, BY PHONE TO DISCUSS DISCHARGE NEEDS, . Initialized on 12/14/17 14:02 - END OF NOTE Assessment/Plan (1) COPD with acute exacerbation Current Visit: Yes Status: Acute Onset Date: ~12/12/17 Assessment & Plan: continue levaquin, wean solu medrol to 40mg IV q6 hrs, continues to have fits of coughing and appears quite anxious. will start xanax for anxiety prn and wean steroids in an attempt to improve. Code(s): J44.1 - CHRONIC OBSTRUCTIVE PULMONARY DISEASE W (ACUTE) EXACERBATION (2) Pulmonary embolus Current Visit: Yes Status: Acute Onset Date: ~12/12/17 Qualifiers: Pulmonary embolism type: other Chronicity: acute Acute cor pulmonale presence: without acute cor pulmonale Qualified Code(s): I26.99 - Other pulmonary embolism without acute cor pulmonale Assessment & Plan: on lovenox currently, plan to discharge to home on xarelto when able Code(s): I26.99 - OTHER PULMONARY EMBOLISM WITHOUT ACUTE COR PULMONALE (3) Diabetes Current Visit: No Status: Chronic Qualifiers: Diabetes mellitus type: type 2 Code(s): E11.9 - TYPE 2 DIABETES MELLITUS WITHOUT COMPLICATIONS
[2017-12-15] MEDS: hydroDIURIL 25 MG PO SCH (09:01)
[2017-12-15] MEDS: ECOTRIN 81 MG PO SCH (09:01)
[2017-12-15] MEDS: NEURONTIN 300 MG PO SCH ×3 (09:01→21:02)
[2017-12-15] MEDS: Cozaar 50 MG PO SCH (09:01)
[2017-12-15] MEDS: CLARITIN 10 MG PO SCH (09:01)
[2017-12-15] MEDS: Protonix 40MG Tablet PO SCH (09:01)
[2017-12-15] MEDS: Pepcid 20 MG VIAL IV SCH ×2 (09:01→21:02)
[2017-12-15] MEDS: Glucotrol 5 MG PO SCH (09:01)
[2017-12-15] MEDS: ENOXAPARIN SODIUM SQ SCH ×2 (09:02→21:00)
[2017-12-15] MEDS: NovoLOG Insulin SQ PRN ×4 (09:20→21:02)
[2017-12-15] MEDS: solu-MEDROL 40 MG IV SCH ×2 (12:09→17:40)
[2017-12-15] MEDS: ZOCOR 20MG PO SCH (21:02)
[2017-12-16] MEDS: solu-MEDROL 40 MG IV SCH ×3 (00:37→12:10)
[2017-12-16] MEDS: Norco 10/325 MG Tablet PO PRN ×2 (02:11→06:23)
[2017-12-16] MEDS: SODIUM CHLORIDE 0.45% W/ 20 mEq KCL 1,000 ML IV SCH (02:38)
[2017-12-16 05:53] LABS: Granulocyte Absolute (ANC) 6.77 (1.4-6.9); Hemoglobin 11.7 gm/dl (12.0-16.0); Mean Cell Volume 96.4 fl (78-100); Mean Corpuscular Hemoglobin 32.2 pg (26-32); Mean Corpuscular Hgb Concent. 33.4 g/dl (32-36); Mean Platelet Volume 10.5 fl (6-9.5); Platelet Count 260 K/mm3 (150-450); Red Blood Count 3.63 M/mm3 (4.1-5.4); Red Cell Distribution Width 13.3 % (11.5-14.0); White Blood Count 8.5 K/mm3 (4.0-10.5)
[2017-12-16 06:27] LABS: ANION GAP 12.3 MEQ/L (5-15); BLOOD UREA NITROGEN 22 mg/dL (7-17); CHLORIDE 100 mmol/L (98-107); Calcium 9.5 mg/dL (8.4-10.2); Carbon Dioxide 30 mmol/L (22-30); Creatinine 1 0.83 mg/dL (0.52-1.04); Glucose 201 mg/dL (74-106); Potassium 4.8 mmol/L (3.5-5.1); SODIUM 138 mmol/L (137-145)
[2017-12-16] MEDS: NovoLOG Insulin SQ PRN ×2 (07:58→12:10)
[2017-12-16] MEDS: Glucotrol 5 MG PO SCH (07:58)
[2017-12-16 08:28] LABS: BAND 1 % (0.0-2.0); Lymphocytes 10 % (24-44); Monocyte 5 % (0.0-12.0); Neutrophils 84 % (36.0-66.0); Platelet Estimate NORMAL (NORMAL); Total Cells Counted 100
[2017-12-16] MEDS: DUONEB 0.5-3 MG/3 ml Neb IH SCH ×2 (08:36→11:00)
[2017-12-16] MEDS: Cozaar 50 MG PO SCH (09:22)
[2017-12-16] MEDS: Protonix 40MG Tablet PO SCH (09:22)
[2017-12-16] MEDS: hydroDIURIL 25 MG PO SCH (09:22)
[2017-12-16] MEDS: CLARITIN 10 MG PO SCH (09:22)
[2017-12-16] MEDS: ENOXAPARIN SODIUM SQ SCH (09:23)
[2017-12-16] MEDS: NEURONTIN 300 MG PO SCH (09:23)
[2017-12-16] MEDS: Pepcid 20 MG VIAL IV SCH (09:23)
[2017-12-16] MEDS: ECOTRIN 81 MG PO SCH (09:23)
[2017-12-16] MEDS ORDERED: ENOXAPARIN SODIUM SQ SCH (11:00)
[2017-12-16 11:49] VITALS: BP 124/58; PULSE 98; O2SAT 95
[2017-12-16] MEDS ORDERED: Coumadin 5 MG PO ONE (12:07)
--- NOTE | 2017-12-16 12:18 | PCM.DCORD ---
- Discharge Discharge Date: 12/16/17 Disposition: Home, Self-Care Condition: Fair Prescriptions: New Warfarin Sodium 5 mg [Coumadin 5 MG] 5 mg PO DAILY@1800 #30 tablet Prednisone 20 mg [Deltasone 20 mg] 20 mg PO UD #7 tablet Clonazepam 0.5 mg [Klonopin 0.5 MG] 0.5 mg PO BID PRN #10 tab PRN Reason: Anxiety Enoxaparin Sodium [Lovenox] 150 mg SQ DAILY #10 syringe Continue Simvastatin 40 mg [Zocor 40 mg] 40 mg PO HS Glipizide 5 mg [Glucotrol 5 MG] 5 mg PO DAILY Gabapentin 300 mg PO TID Omeprazole 20 MG [Prilosec 20 mg] 20 mg PO DAILY Losartan/Hydrochlorothiazide [Losartan-Hctz 100-25 mg Tab] 1 each PO DAILY Loratadine 10 mg [Claritin 10 mg] 1 tablet PO DAILY Albuterol/Ipratropium 3ml Neb* [DUONEB 0.5-3 MG/3 ml Neb] 3 ml IH Q4HRT # 100 ampul Nebulizer and Compressor [Easy Air Compressor Nebulizer] 1 each MC UD #1 each Discontinued Aspirin 81 mg PO DAILY Instructions: Pulmonary Embolism (Blood Clot in the Lungs) (DC), Exacerbation of COPD (DC), Enoxaparin, Anti-Clotting Medicines: Warfarin (Coumadin), Prothrombin Time (PT) Test and International Normalized Ratio (INR) Additional Instructions: COME TO [facility] FOR YOUR LOVENOX INJECTION TOMORROW, 12/17/17 AT 10:30 AM. YOU WILL NEED TO REGISTER THE FIRST TIME. AFTER YOUR DOSE TOMORROW, THEY WILL GIVE YOU A TIME TO RETURN DAILY IN THE AFTERNOON YOU REQUESTED. INR to be checked on 12/20/17 with results called to Dr. Ellsworth. Follow up with: JAVED ELLSWORTH MD [Primary Care Provider] - 1 Week Forms: Discharge Instructions
[2017-12-16 12:27] LABS: INR 1.19 (0.8-3.0)
[2017-12-16] MEDS ORDERED: Levofloxacin 500 MG Tablet PO ONE (12:30)
[2017-12-17] MEDS ORDERED: Coumadin 5 MG PO SCH (18:00)
--- NOTE | 2017-12-20 14:24 | DS ---
DISCHARGE DIAGNOSES: 1) RIGHT LOWER LOBE PULMONARY EMBOLISM. 2) CHRONIC OBSTRUCTIVE PULMONARY DISEASE EXACERBATION. 3) DIABETES MELLITUS TYPE 2. DISCHARGE PHYSICAL EXAMINATION: VITALS: Temperature current 98.1F, temperature max 98.1F, heart rate 73 to 98, respiratory rate 18 to 24, blood pressure 124 to 136 over 58 to 69. Oxygen saturation 95 to 98% on room air. GENERAL: The patient is sitting up in her chair very anxious woman crying when I asked her questions. Her nurse reports this is her baseline. She is alert and talkative. CVS: She has a regular rate and rhythm. No murmurs, gallops or rubs are appreciated. CHEST: Clear to auscultation bilaterally. No crackles or wheezes are appreciated. ABDOMEN: Soft, nontender, nondistended with normal bowel sounds. EXTREMITIES: No clubbing, cyanosis or edema. SKIN: Warm, dry and intact. She is obese. HOSPITAL COURSE: 1) RIGHT LOWER LOBE PULMONARY EMBOLISM: This was found on chest CT on admission. She was started on Lovenox 1 mg/kg every 12 hours. Her primary care physician saw her until her day of discharge. He wanted her sent home on Xarelto. Unfortunately when the script was called to her pharmacy was prohibited as she had not met her deductible yet. The only thing that she will be able to afford is Coumadin and this will need bridged with Lovenox. Arrangement were made with outpatient for her to come in once a day for Lovenox 150 mg subcutaneously daily. She will need to be on this for at least five days and her international normalized ratio will also need to be above 2 before this is discontinued. I started her on Coumadin 5 mg daily with her first dose today. She will need international normalized ratio checked on Monday with results called to her primary care physician, Dr. Rothman. I discussed with the patient that she may eat leafy green vegetables but she needs to eat the same amount each day. Unfortunately since it is Monday there is no dietary consult available for her to have her receive counseling about the Coumadin diet. The patient was on room air at discharge. I have ordered a baseline international normalized ratio to be drawn before she goes home. 2) CHRONIC OBSTRUCTIVE PULMONARY DISEASE EXACERBATION: She improved during her hospitalization. Please see Dr. Rothman notes for details. She was on levofloxacin 750 mg every other day. She is due for a dose this evening. I have asked them to give her an oral dose today and that will complete the course of antibiotics for the chronic obstructive pulmonary disease exacerbation. She has been on IV Solu-Medrol which has been weaned. I have written a script for prednisone to continue that wean at home. 3) DIABETES MELLITUS TYPE 2: Her blood sugars have been under control. 4) ANXIETY: She was receiving IV benzodiazepine here. I have written for Klonopin 0.5 mg p.o. b.i.d. as needed for five days and she will need to follow up with Dr. Rothman. He had initially started her on this IV since admission to the hospital and will see if he wants to continue with it any longer as an outpatient. DISCHARGE MEDICATIONS: Please see the discharge order. I did stop her aspirin since we are starting her on Coumadin. I did not see any history of coronary artery disease on her chart. DISPOSITION: The patient was discharged to home in fair condition. She had initially thought she was going for rehab but the cost was prohibited so the family was agreeable to taking her home. Over 30 minutes was spent in face to face in coordination of the patient's discharge here in the hospital.
== END 2017-12-16 14:27 | disposition home or self-care (01) | DRG 190 ==
LOC: ED 16:56 → MED SURG 21:43
PROVIDERS: ADMIT Family Medicine; ATTEND Family Medicine
DX: J44.1 Chronic obstructive pulmonary disease with (acute) exacerbation (principal); I10 Essential (primary) hypertension; E78.00 Pure hypercholesterolemia, unspecified; I26.99 Other pulmonary embolism without acute cor pulmonale; J45.909 Unspecified asthma, uncomplicated; K21.9 Gastro-esophageal reflux disease without esophagitis; E11.9 Type 2 diabetes mellitus without complications; G62.9 Polyneuropathy, unspecified; Z87.891 Personal history of nicotine dependence; F41.9 Anxiety disorder, unspecified; Z79.899 Other long term (current) drug therapy; M79.605 Pain in left leg; M79.604 Pain in right leg
CPT/HCPCS: 36000; 36415; 71045; 71260; 80048; 80053; 82805; 82962; 83036; 83605; 83735; 83880; 84484; 85025; 85379; 85610; 87040; 87631; 93005; 93041; 94150; 94640; 94760; 96372; 96374; 96375; 99285; J1200; J1650; J1956; J2920; J2930; J3010; J3475; A9270-GY